=== PATIENT | male | born 1955 | race Caucasian/White ===

== ENCOUNTER 2025-03-06 04:56 | Inpatient (IN) | payer OTHER, SELFPAY ==
[2025-03-05 09:39] LABS: Hematocrit 30.1 % (39.0-52.0); Hemoglobin 9.6 g/dL (13.0-18.0); Mean Corp Hgb Conc. 31.9 g/dL (33.0-37.0); Mean Corpuscular Volume 90.9 fL (80.0-94.0); Nucleated Red Blood Cells % 0 % (-); Platelet Count 136 10^3/uL (130-400); Red Cell Dist. Width 14.9 % (11.5-14.5)
[2025-03-05 09:42] LABS: Urine Character Clear (Clear)
[2025-03-05 09:43] LABS: INR 1.15; PT 15.0 Sec (11.4-14.6)
--- NOTE | 2025-03-05 09:54 | CM ---
Chart reviewed. Met with the patient and sister in [facility]. Reviewed preoperative and postoperative instructions and restrictions, along with showering guidelines. Gave patient 2 soaps. Patient is agreeable to a home visit with CT Transitional RN.
Patient is independent of ADLS, lives alone in a 1 [address], 5 ZHANG, 0 DME. Patient with a supportive sister that the patient may go back to her house when discharged. Patient's sister lives in [place]. Plan is for the patient to return home vs
sister's house with CT Transitional Care RN.
[2025-03-05 10:18] LABS: ALT (SGPT) 23 U/L (0-50); AST (SGOT) 25 U/L (17-59); Albumin 4.0 g/dl (3.5-5.0); Alkaline Phosphatase 133 U/L (38-126); Blood Urea Nitrogen 17 mg/dl (9-20); Calcium 8.7 mg/dl (8.4-10.2); Carbon Dioxide 27 mmol/L (22-30); Chloride 106 mmol/L (98-107); Estimated Creatinine Clearance 107 ml/min; Glucose 266 mg/dl (70-99); Potassium 5.1 mmol/L (3.5-5.1); Sodium 137 mmol/L (135-145); Total Protein 8.7 g/dl (6.3-8.2); eGFR > 60.00
[2025-03-05 10:20] LABS: Glycohemoglobin (HgbA1c) 8.6 % (4.0-5.6)
[2025-03-05 10:38] LABS: Urine Squamous Cell 16-20 /LPF (Few)
[2025-03-05 10:40] LABS: Urine Red Blood Cell 0-2 /HPF (0-2); Urine White Cell 0-2 /HPF (0-5)
[2025-03-06] VITALS (15 sets, daily range): BP systolic 94–168; BP diastolic 47–71; BMI 35.5
[2025-03-06] MEDS: MAGNESIUM OXIDE 500 MG PO (05:43)
[2025-03-06] MEDS: BACTROBAN 2% OINTMENT 1 APPLIC NASAL ×2 (05:43→20:10)
[2025-03-06] MEDS: PROTONIX 40 MG PO (05:44)
[2025-03-06] MEDS: LOPRESSOR 25 MG PO (05:44)
--- NOTE | 2025-03-06 05:58 | PTCARENOTE ---
0500 admitted patient into room, patient was clipped and had CHG bath, linens changed, pre op questions completed. Patient confrimed NPO status, and home CHG bath/shower. Home medications reviewed. Pre op PO medications given. Glasses in room
with sister.
--- NOTE | 2025-03-06 06:13 | W.CVOR.SURPR ---
CVOR Surgeon Immed Pre Op
-
I have examined this patient prior to performance of the scheduled procedure.
The patient's condition is unchanged from the time of the dictated/written History and
Physical and the patient is able to undergo the scheduled procedure.
CABG +/- AVR + ALFREDO E
[2025-03-06 07:38] LABS: Urine Character Clear (Clear)
[2025-03-06 07:51] LABS: ACT+ - POC 123 Seconds (82-134)
[2025-03-06 07:52] LABS: Urine White Cell 0-2 /HPF (0-5)
[2025-03-06 09:21] LABS: B.E. - POC -1.2 mmol/L; Glucose - POC 189 mg/dl (70-99); HCO3 - POC 24 mmol/L (21-28); Hematocrit - POC 27 % PCV (42-52); Hemodilution- POC No; Hemoglobin Calculated - POC 9.3; Ionized Calcium - POC 1.19 mmol/L (1.15-1.33); Lactate - POC 1.14 mmol/L (0.36-0.75); O2 Saturation %Calculated-POC 99.5 % (94-98); PCO2 - POC 44 mmHg (35-48); PO2 - POC 177 mmHg (83-108); Potassium - POC 4.1 mmol/L (3.5-5.1); Sodium - POC 141 mmol/L (136-145); Specimen Type - POC Arterial; pH - POC 7.36 (7.35-7.45)
[2025-03-06 09:31] LABS: ACT+ - POC 634 Seconds (82-134)
[2025-03-06 09:50] LABS: B.E. - POC 0.8 mmol/L; Glucose - POC 224 mg/dl (70-99); HCO3 - POC 26 mmol/L (21-28); Hematocrit - POC 27 % PCV (42-52); Hemodilution- POC No; Hemoglobin Calculated - POC 9.1; Ionized Calcium - POC 1.17 mmol/L (1.15-1.33); Lactate - POC 0.93 mmol/L (0.36-0.75); O2 Saturation %Calculated-POC 99.8 % (94-98); PCO2 - POC 45 mmHg (35-48); PO2 - POC 225 mmHg (83-108); Potassium - POC 4.4 mmol/L (3.5-5.1); Sodium - POC 141 mmol/L (136-145); Specimen Type - POC Arterial; pH - POC 7.37 (7.35-7.45)
[2025-03-06 10:03] LABS: ACT+ - POC 683 Seconds (82-134)
[2025-03-06 10:35] LABS: ACT+ - POC 525 Seconds (82-134)
[2025-03-06 10:54] LABS: B.E. - POC 1.8 mmol/L; Glucose - POC 217 mg/dl (70-99); HCO3 - POC 27 mmol/L (21-28); Hematocrit - POC 27 % PCV (42-52); Hemodilution- POC Yes; Hemoglobin Calculated - POC 9.2; Ionized Calcium - POC 1.13 mmol/L (1.15-1.33); Lactate - POC 1.27 mmol/L (0.36-0.75); O2 Saturation %Calculated-POC 99.7 % (94-98); PCO2 - POC 46 mmHg (35-48); PO2 - POC 208 mmHg (83-108); Potassium - POC 4.6 mmol/L (3.5-5.1); Sodium - POC 141 mmol/L (136-145); Specimen Type - POC Arterial; pH - POC 7.38 (7.35-7.45)
--- NOTE | 2025-03-06 11:16 | CM ---
Chart reviewed. Patient is in the OR today. Patient is independent of ADLS, lives alone in a 1 S[address], 5 ZHANG, 0 DME. Patient with a supportive sister who lives in [place]. Patient unsure if he will go home with CT Transitional RN vs
sister's house with CT Transitional RN. CM to follow
[2025-03-06 11:28] LABS: ACT+ - POC 131 Seconds (82-134)
[2025-03-06 11:40] LABS: B.E. - POC 2.9 mmol/L; Glucose - POC 218 mg/dl (70-99); HCO3 - POC 28 mmol/L (21-28); Hematocrit - POC 28 % PCV (42-52); Hemodilution- POC Yes; Hemoglobin Calculated - POC 9.4; Ionized Calcium - POC 1.06 mmol/L (1.15-1.33); Lactate - POC < 0.30 mmol/L (0.36-0.75); O2 Saturation %Calculated-POC 100.0 % (94-98); PCO2 - POC 44 mmHg (35-48); PO2 - POC 410 mmHg (83-108); Potassium - POC 4.8 mmol/L (3.5-5.1); Sodium - POC 140 mmol/L (136-145); Specimen Type - POC Arterial; pH - POC 7.41 (7.35-7.45)
--- NOTE | 2025-03-06 11:53 | W.PN.CT.SURG ---
CT Surgery Operative Note
-
CARDIAC SURGERY OPERATIVE REPORT
Preoperative Diagnosis: Multivessel Coronary Artery Disease with proximal LAD involvement
Postoperative Diagnosis: Same
Procedure(s) Performed:
1. Standard Sternotomy with Aortic and Right Atrial Cannulation
2. Internal Mammary Artery Harvesting, Left
3. Multi arterial coronary artery bypass grafting x 5 (In situ ABARCA to diagonal sequential to to LAD, Ao to RSVG to ramus, Ao to RSVG to RPDA sequential to LPL)
4. Endoscopic vein harvesting of left lower extremity and open exploration for vein in the right thigh
5. Transesophageal echocardiography
6. Placement of Temporary Ventricular Pacing Wires
7. Left atrial appendage exclusion [35 mm device]
Date of Surgery: 03/06/2025
Comorbidities:
1. Unstable angina, multivessel coronary disease involving the proximal LAD
2. Diabetic
3. Hypertension
4. Morbidly obese with a BMI of 35
5. Hyperlipidemia
6. Nephrolithiasis
7. Venous stasis changes and lymphedema bilateral lower extremities
Attending Surgeon: Paolo French MD, MS
Assistants: DIONTE Brown (present and necessary to librarian assistant, endoscopic vein harvest, retraction, suction, exposure, suture management, and wound closure under my direction), Johan Ash, PGY 2 (Cardiac Surgery Resident)
Anesthesiology: Zia Maynard MD and Jeffy Moran CRNA
Scrub and Circulating RNs: Joelle Strange RN, Guerita Zavala RN
Fertilizer Mixer: Glenn Meraz CCP
Anesthesia: GETA
EBL: per perfusion records
Products: None
CPB Time: 90 minutes
Aortic Cross Clamp Time: 81 minutes
Indication(s) for Procedures: This is a 69-year-old male has been experiencing chest pain and discomfort. He underwent cardiovascular evaluation and was found to have multivessel coronary artery disease. He also was found to have a moderate degree
of aortic valve insufficiency which would be interrogated intraoperatively. He was offered surgical revascularization given his diabetic status and proximal LAD involvement and multi arterial lesion pattern.
Conduit(s) Quality:
ABARCA -thickened as a pedicle, densely adherent to the chest wall but excellent flow
RSVG -average, multiple varicosities, thin spots but decent caliber
Target(s) Quality:
RPDA -good quality size target, mean flow of approximately 40 cc a minute at a pressure 80 mmHg, given the size of the vein graft there is difficulty with flow probe assessment of the vein graft
LPL -smaller size target but overall good flow on test dosing antegrade down the vein graft, done as a sequential graft to the RPDA
Ramus -large sized target with heavy calcium proximally, the vein had excellent flow here with a mean flow approximately 32 cc a minute with a pulse index of 6.1, test dosing antegrade yielded a mean flow of approximately 60 to 70 cc a minute at a
pressure of 80 mmHg
Diagonal -good, large diagonal vessel that traveled down towards the apex, the ABARCA was sequenced here before hitting the LAD as a trauma part of the graft, there was good visual flow in that territory and good flow in the graft using a Doppler as I
was unable to get the flow probe to fit over the pedicle graft
LAD -excellent, large target with good visual flow in the LAD territory, there was good Doppler signals after the diagonal sequence on the ABARCA graft, there was also visual pinking up of and warming up of the myocardium after release of the bulldog
clamp
Findings: His left ventricular ejection fraction preoperatively was 60% with no significant regional wall motion abnormalities. His aortic valve was interrogated on transesophageal echocardiogram and found to have no significant insufficiency and
no stenosis. The ABARCA was harvested in a pedicle fashion. Following bypass grafting, test dose cardioplegia was given down each distal and confirmed patency and hemostasis. Following surgery his EF was the same and there were no new regional wall
motion abnormalities. His left atrial appendage was verified to be free of any thrombus or debris preoperatively and found to be totally occlusive postoperatively. I did divide the ligament of Walt. Of note, he had poor conduit which was
expected given the venous stasis and lymphedema of his lower extremities. I did not opt to take a radiograph as I felt his lesions did not have enough proximal disease for to mature and prevent spasm.
Description of Procedure: The patient was taken to the operating room. Their identity and procedure to be performed were verified and they were positioned supine on the operating table. Induction via general anesthesia with endotracheal intubation
was performed and central venous access and arterial monitoring were inserted. A preoperative transesophageal echocardiogram was performed to assess cardiac function and valvular function. The patient was then prepped and draped from chin to feet in
a sterile fashion. A preoperative time-out was performed with all members of the team present. A midline chest incision was performed along with median sternotomy. Simultaneous endoscopic access of the left lower extremity for saphenous vein harvest
was obtained along with administration of an initial 5,000 units of IV heparin. A RulTract sternal retractor was positioned to exposure the left internal mammary bed. The mammary was harvested and found to have good flow. Several medium clips were
applied to the distal end of the mammary after dividing it. It was wrapped in a papaverine soaked RayTec and replaced back into the left hemithorax. Given the lack of vein conduit, the right leg was also explored in an open fashion in order to
notify any conduit, none was found the RulTract was exchanged for a median sternal retractor. The innominate vein was isolated. Full heparinization was given (a total of 60,000 units). We created a pericardial well. The aortic cannulation site was
chosen where it was soft, pliable, and free of calcium. Cannulation was performed with an arterial cannula in the ascending aorta and a triple-stage venous cannula through the right atrial appendage. The arterial cannula line had an appropriate
bounce and correlating pressures with test dosing. Next, a root vent/antegrade cannula was inserted into the ascending aorta. The ACT was confirmed to be over 400 and retrograde autologous priming was performed before commencing cardiopulmonary
bypass. The pulmonary artery was away from the aorta to facilitate a clamp site. The aortic cross-clamp was placed after decreasing the flow on the bypass and mean arterial pressure. A total of 1.2L initial dose of antegrade Del-Nido
cardioplegia solution was given and planned for re-dosing every 75 minutes as necessary. There was rapid electro-mechanical arrest of the heart at 300 cc of cardioplegia. The left ventricle was observed for distention on echocardiogram and manual
palpation. Cold slush was placed into a sponge and topically on the RV while we systemically cooled to 34 degrees centigrade. Once the heart was fully arrested it was rotated medially and the left atrial appendage was clipped flush the base and the
ligament of Walt was divided.
I positioned the heart to expose the left posterior lateral branch. A [place] blade was used to expose the coronary and perform the arteriotomy. Coronary Hurtado scissors were used to enlarge the incision. The saphenous vein was trimmed and beveled to
an appropriate size. The distal anastomosis was performed using 7-0 prolene in an end-to-side fashion. Antegrade cardioplegia was administered into the graft. Appropriate hemostasis and flow were confirmed. I then identified the RPDA in a similar
fashion prepared with a [place] blade. The underbelly of the vein graft was incised and a [id number] anastomosis was created with this graft using 7-0 Prolene. I then clamped the distal end with a bulldog and additional cardioplegia was given
down to test the flow in the graft which was excellent. The bulldog was then removed and the vein graft was cut to the length of the aorta. A suitable site on the ramus was chosen. We dissected and prepared the distal target in a similar fashion.
An end-to-side anastomosis was created with a 7-0 prolene. Antegrade cardioplegia was administered into the graft. Appropriate hemostasis and flow were confirmed. The graft was measured for length to the aorta and cut. There was a very large
diagonal vessel that had some proximal disease on palpation. This vessel had a down towards the apex. A small coronary arteriotomy was then created and then the ABARCA was brought into the field. The underbelly the ABARCA at the midportion was
incised and a [id number]-[id number] anastomosis was created here. I then prepared the distal LAD in a similar fashion and a small coronary arteriotomy was created and the distal end of the ABARCA was also incised and a end-to-side anastomosis was created with
7-0 Prolene. Upon release of the bulldog clamp there was excellent visual flow in the LAD territory. When I did complete the diagonal anastomosis I did release the bulldog clamp to test the flow there was good visual flow in the diagonal but very
sluggish flow back into the LAD. The bull clamp was replaced on the mammary. The heart was filled and the root was distended with antegrade cardioplegia to make final assessment of graft length and orientation. We created 2 aortotomies using a #11
blade then a 4.0mm aortic punch. The proximal anastomoses were created in an end-to-side fashion using 6-0 prolene. At the the same time, we re-warmed to 36.5 degrees centigrade. The bulldog clamp was removed from the mammary. Temporary bipolar
ventricular pacing wires were placed on the base of the right ventricle. The patient was placed in a Trendelenburg position and flows on bypass were lowered. The aortic cross clamp was removed and flows were slowly brought back up. All bypass grafts
were inspected and were free from kinking or twisting. The distal and proximal anastomoses appeared hemostatic. Once transesophageal echocardiography appeared satisfactory for de-airing, the flows were temporarily lowered for root vent removal.
After verifying acceptable parameters, we initiated weaning from cardiopulmonary bypass. Once we were off cardiopulmonary bypass, the venous cannula was clamped and removed. A test dose of protamine was administered and the patient was monitored for
any adverse reaction before resuming protamine. Once half of the protamine dose was delivered, pump suckers were turned off and the systolic blood pressure was lowered for aortic decannulation. The aortic cannula was removed and pursestrings were
tied down. All cannulation sites were oversewn with a 4-0 prolene. The mammary bed was inspected and hemostasis was confirmed. Once the mediastinum was hemostatic, 19Fr Wilman drain was placed in the left pleural cavity and two 24Fr Wilman drains were
placed within the pericardium. The sternum was approximated with 4 #7 single and 3 #8 double stainless steel wires. Fascia was approximated with #1 vicryl suture. The subcutaneous, dermis and epidermis were closed in layers in a running fashion. The
skin wound was cleansed and dressed.
All instrument, sponge, and needle counts were confirmed to be correct x 2 at the end of the operation. The patient was transferred to the cardiac intensive care unit in critical but stable condition.
I, Dr. Paolo French, was present, scrubbed for, and performed all critical elements of this procedure.
Paolo French MD, MS
Cardiothoracic Surgeon
[facility]
This operative dictation was created using the [employer] dictation system. Please excuse any grammatical, typographical, or 'sound alike' errors
[2025-03-06] MEDS: NOVOLOG FLEXPEN SC ×2 (12:01→17:22)
[2025-03-06 12:50] LABS: B.E. - POC -0.6 mmol/L; Glucose - POC 170 mg/dl (70-99); HCO3 - POC 25 mmol/L (21-28); Hematocrit - POC 29 % PCV (42-52); Hemodilution- POC Yes; Hemoglobin Calculated - POC 9.8; Ionized Calcium - POC 1.32 mmol/L (1.15-1.33); Lactate - POC 2.30 mmol/L (0.36-0.75); O2 Saturation %Calculated-POC 99.9 % (94-98); PCO2 - POC 46 mmHg (35-48); PO2 - POC 314 mmHg (83-108); Potassium - POC 4.0 mmol/L (3.5-5.1); Sodium - POC 143 mmol/L (136-145); Specimen Type - POC Arterial; pH - POC 7.35 (7.35-7.45)
[2025-03-06 13:08] LABS: Glucose - Point of Care 158 mg/dl (70-99)
[2025-03-06 13:23] LABS: B.E. -2.6 mmol/L; HCO3 23.7 mmol/L (21-28); O2 Saturation % 99.1 % (94-98); PCO2 47 mmHg (35-48); PO2 106 mmHg (83-108); Potassium 3.8 mMOL/L (3.5-5.1); Sodium 138 mMOL/L (136-145)
--- NOTE | 2025-03-06 13:33 | PN.DE.MGMTRT ---
Insulin Management
- -
03/06/2025: Diabetes Management Consult
69 year old male admitted for an elective AVR, CABG. PMH: MVCAD, HTN, HLD, Obesity, ex-smoker, 5 pack years, quit at age 22, Neck and back pain, Abdominal hernia, R kidney tumor, + Cancer, Neuropathy, Nephrolithiasis, Anemia and IDDM.
A1C 8.6%, Cr 0.9, eGFR >60. Chart review indicates pt was taking, Basaglar 40 units in AM, NovoLog SS, Metformin 500mg BID and Glimepiride 2mg BID.
Pt is sedated and intubated, unable to interview or collaborate OP regimen and no family at bedside.
Will have to verify this med list when he is alert and oriented.
POD # 0 S/P AVR, CABG x4. Currently on Critical care glycemic protocol. Recent glucose 158.
Continue insulin infusion postoperatively x48 hrs.
Will closely follow and monitor for readiness to transition to SQ insulin
Discussed with Nurse.
Diabetes History
- -
Type of Diabetes: 2 requiring insulin
Pre-Admission Diabetes Regimen
Lab Results
Hemoglobin A1c 8.6 % (4.0-5.6) H 03/05/25 08:42
Insulin Pump Settings
IP Diabetes Regimen
03/06/25
13:07
POC Glucose 158 H
Patient Education
[2025-03-06 13:37] LABS: INR 1.49; PT 18.2 Sec (11.4-14.6)
[2025-03-06 13:38] LABS: APTT 27.4 Sec (23.4-35.0)
[2025-03-06] MEDS: LR 250 ML IV (13:39)
[2025-03-06] MEDS: KCL 50 IV ×2 (13:39→14:39)
[2025-03-06] MEDS: NSS 500 IV (13:39)
[2025-03-06] MEDS: ANCEF 15 MG IV (13:40)
[2025-03-06] MEDS: ANCEF 10 IV (13:40)
[2025-03-06 13:48] LABS: Hematocrit 25.0 % (39.0-52.0); Hemoglobin 8.3 g/dL (13.0-18.0); Platelet Count 174 10^3/uL (130-400)
[2025-03-06 13:50] LABS: Blood Urea Nitrogen 19 mg/dl (9-20); Estimated Creatinine Clearance 119 ml/min; Glucose 152 mg/dl (70-99); Magnesium 2.3 mg/dl (1.6-2.3)
[2025-03-06 14:01] LABS: Glucose - Point of Care 144 mg/dl (70-99)
--- NOTE | 2025-03-06 14:12 | CON.INTV ---
Consultation
Consultation Request
Date/Time Consultation Requested: 03/06/2025
Date/Time Consultation Performed: 03/06/2025
Medical History
-
Chief Complaint: Chest pain
History of Present Illness:
Patient is a 69-year-old gentleman who was reportedly having episodic chest discomfort and was evaluated as an outpatient. He had an echocardiogram performed which showed normal left ventricular ejection fraction with some left ventricular
hypertrophy. Subsequently patient had a left heart catheterization performed in January 2025 which demonstrated severe proximal LAD disease with IFR assessment of 0.4. Circumflex also heavily diseased with a positive IFR. Patient was evaluated by CT
surgery service and was recommended to have coronary artery bypass graft. Today patient was admitted to the hospital for above surgery and postsurgery was admitted to CVICU. Tab Machine Operator consultation was requested for further input.
Past medical history. Diabetes, hypertension, obesity, hyperlipidemia, reported history of renal tumor, neuropathy, nephrolithiasis, lower extremity edema, question lymphedema.
Past surgical history. Appendectomy, back surgeries, renal tumor removal.
Family history. Patient's parents were smokers, father had coronary artery disease. No reported history of lung cancer in the family.
Social history. Patient smoked very briefly in his 20s and has never smoked since. Reported secondhand exposure to smoking as well as some asbestos exposure in the past.
Allergies / Home Medications
Allergies
Allergy/AdvReac Type Severity Reaction Status Date / Time
No Known Allergies Allergy Unverified 07/12/12 20:24
Home Medications
�Medication �Instructions �Recorded �Confirmed �Last Taken �Type
glimepiride 2 mg tablet 2 mg PO BID 07/12/12 03/06/25 07/23/22 08:00 History
hydrocodone 5 mg-acetaminophen 325 1 tab PO Q4HPRN PRN pain 07/12/12 03/06/25 03/05/25 History
mg tablet 10/325
ketorolac 10 mg tablet 10 mg PO Q6HPRN PRN prn for pain 07/12/12 03/06/25 Unknown Rx
#20 tabs
lisinopril 5 mg tablet 5 mg PO DAILY 07/12/12 03/06/25 03/05/25 09:00 History
metformin 500 mg tablet 500 mg PO BID@0800,1700 07/12/12 03/06/25 07/23/20 09:00 History
Review of Systems
-
Unable to Obtain full review of systems at this time due to: Other (Patient just extubated and still sedated, unable to perform a full review of system.)
Vitals / Labs / Diagnostic Testing
Vital Signs
Temp Pulse Resp BP Pulse Ox
95.7 F L 57 6 115/64 98
03/06/25 14:00 03/06/25 14:10 03/06/25 14:05 03/06/25 14:00 03/06/25 14:10
Lab Data
03/06/25 13:07
Laboratory Results
03/06/25
13:07
PT 18.2 H
INR 1.49
APTT 27.4
pH 7.31 L
pCO2 47
pO2 106
HCO3 23.7
O2 Delivery Level
Diagnostic Testing:
Physical Exam
-
HEENT: Normocephalic
Cardiovascular: S1/S2
Respiratory: Non-Labored Respirations
GI: Soft and Non Distended
Neurology: Other (Drowsy, protecting airways and breathing on his own)
Skin: Warm
General: Comfortable
Assessment
-
69-year gentleman with newly detected multivessel disease, s/p coronary artery bypass graft and left atrial appendage clip placement, POD # 0
Titrate off pressors per protocol, currently on Levophed infusing at 8. Blood pressure 94 x 45.
ECHO reviewed with normal LVEF.
PA catheter readings reviewed, 36 x 16, mean of 22, cardiac index 2.1
Management of chest tubes per primary service
Patient was extubated minutes before evaluation, still drowsy however saturating 99% on 6 L supplemental oxygen, respiratory rate in high teens to low 20. Work of breathing normal
Wean oxygen as tolerated
No prior history of pulmonary disease, smoked very briefly before age 22 none since. Reports secondhand smoke exposure however
Prior PFTs reviewed
Can add nebulizers if needed
Aspiration precautions
Encouraged incentive spirometry, OOB/ambulation/early mobility
Advance diet as tolerated following extubation
GI prophylaxis: protonix
Monitor critical I/O's
Moise/chest tube output
Hb/platelets postoperatively stable
Trend CBC for now
Can transfuse if indicated for Hb <7, plt <50 in surgical patients
DVT prophylaxis including SCDs
Insulin protocol initiated and ongoing
Transition to SQ/off as indicated per team
Medical diagnoses:
- CAD s/p CABG and ALFREDO clip 02/2025. On aspirin, Plavix, atorvastatin
- HTN, HLD
- DM
- H/o Asbestos exposure
- History of renal tumor, s/p resection in the past. Will gather additional detail once patient is more awake and alert
Critical Care time 61 mins -- The patient is admitted for acute critical illness for the treatment of vital organ failure and/or prevention of further life-threatening conditions. Total care includes time spent in review of history, physical exam,
medications, hemodynamic/ventilator parameters, laboratory data, imaging and discussion with house staff, pharmacy, respiratory therapy, protozoologist, and nursing.
Data:
CXR 02/2025: Mild LLL atelectasis. Otherwise unremarkable
JOSIE 02/2024: Normal left ventricular size and systolic function, mild LVH, stage I diastolic dysfunction.
No significant aortic valve disease.
The aorta has atheroma less than 5 mm and mild calcifications.
Mild left atrial enlargement.
Trace MR. Mild MAC.
Trace TR
[2025-03-06] MEDS: TYLENOL PO (14:24)
--- NOTE | 2025-03-06 14:25 | PTCARENOTE ---
Patient received from CVOR at 1300; Sedated and intubated; SB with SR rhythm on monitor; VSS; Epicardial V wire present with temporary pacemaker settings 45/10/2.0; +2 DP and radial pulses present; Lungs diminished at bases; ETT size 8 positioned
and secured at 24 cm right lip; Ventilator settings SIMV 14/550/5/5 FiO2 40%; CTx3 to -20 cm wall suction draining bloody drainage - no air leak, tidaling, or crepitus noted; Hypoactive BS; Moise catheter in place draining clear, yellow urine;
Midline sternal incision glued, approximated, and SHANNA, right groin incision puncture site glued, approximated, and DIRECTORY OPERATOR - CDI, left groin incision puncture site glued, approximated, and SHANNA - CDI, B/L LE wrapped in CLIFF wrap - CDI; Right radial A-line
in place, [place] Cesar floated to 47 cm in RIJ Cordis - all lines zeroed and leveled; PIVx1 - #20 right wrist; Levo, insulin, and precedex infusing - see nursing flowsheets for further details; K repleted x2, LR bolus given x1; see nursing
documentation for further details.
CO: 4.10
CI: 1.71
SVR: 995
--- NOTE | 2025-03-06 14:55 | PTCARENOTE ---
RT in room and patient placed on CPAP breathing trial. EPOC ABG due at 1527
[2025-03-06 15:04] LABS: Glucose - Point of Care 176 mg/dl (70-99)
--- NOTE | 2025-03-06 15:08 | W.PN.CD ---
Today's Communication / Plan
-
Continue postop care as directed by CT surgery.
Wean from vent as per protocol.
Wean pressor as tolerated. Currently on levo at 2
Monitor for atrial fibrillation.
Diabetes management per protocol
Impression / Plan
-
69-year-old male with history of diabetes is noted to have multivessel coronary artery disease and underwent coronary artery bypass grafting and ALFREDO clip
.
Coronary artery disease -status post coronary artery bypass grafting x [address] ALFR[address] Dr[address] French 03/06/2025
- Stable postop
- Extubate as per protocol
- Postop care per CT surgery
.
Diabetes management per protocol.
Anemia. History of anemia. Monitor postop anemia.
.
History of resection of right kidney tumor
ECG 03/06/2025 sinus bradycardia
.
Physical Exam
Vital Signs/Labs
Vital Signs
Temp Pulse Resp BP Pulse Ox
95.7 F L 57 6 115/64 98
03/06/25 14:00 03/06/25 14:10 03/06/25 14:05 03/06/25 14:00 03/06/25 14:10
03/05/25 03/06/25 03/07/25
06:59 06:59 06:59
Actual Weight 118.6 kg
03/06/25 13:07
PT 18.2 Sec (11.4-14.6) H 03/06/25 13:07
INR 1.49 03/06/25 13:07
APTT 27.4 Sec (23.4-35.0) 03/06/25 13:07
Magnesium 2.3 mg/dl (1.6-2.3) 03/06/25 13:07
Physical Exam
Constitutional: No acute distress and Other (Vented)
Cardiovascular: Rhythm & rate is regular
Respiratory: Wheeze Absent and Rhonchi Absent
GI: Soft
Data Reviewed
-
Date of Service: March 06, 2025
Medical Decision Making: Reviewed Test Results
Echo: Report Reviewed by me
Medical Tests (PFT, Pathology etc): Report Reviewed by me
Labs: Labs Reviewed by me
[2025-03-06 15:35] LABS: B.E. - POC -1.6 mmol/L; Blood Urea Nitrogen - POC 19 mg/dl (3-120); Chloride - POC 107 mmol/L (96-111); Creatinine - POC 0.82 mg/dl (0.3-1.0); Glucose - POC 154 mg/dl (70-99); HCO3 - POC 25 mmol/L (21-28); Hematocrit - POC 27 % PCV (42-52); Hemodilution- POC No; Hemoglobin Calculated - POC 9.0; Ionized Calcium - POC 1.23 mmol/L (1.15-1.33); Lactate - POC 1.55 mmol/L (0.36-0.75); O2 Saturation %Calculated-POC 98.4 % (94-98); PCO2 - POC 49 mmHg (35-48); PO2 - POC 124 mmHg (83-108); Potassium - POC 5.0 mmol/L (3.5-5.1); Sodium - POC 143 mmol/L (136-145); Specimen Type - POC Arterial; pH - POC 7.32 (7.35-7.45)
--- NOTE | 2025-03-06 15:43 | PTCARENOTE ---
EPOC ABG's reviewed with CHIARA Ace; RT at bedside; Patient extubated at 1540 and placed on 6L NC
[2025-03-06 15:57] LABS: Glucose - Point of Care 171 mg/dl (70-99)
[2025-03-06] MEDS: OFIRMEV 100 IV (16:10)
[2025-03-06 16:45] LABS: Glucose - Point of Care 175 mg/dl (70-99)
[2025-03-06 16:51] LABS: B.E. -3.5 mmol/L; HCO3 23.1 mmol/L (21-28); Hematocrit 26.6 % (39.0-52.0); Hemoglobin 8.9 g/dL (13.0-18.0); O2 Saturation % 99.1 % (94-98); PCO2 48 mmHg (35-48); PO2 128 mmHg (83-108); Platelet Count 191 10^3/uL (130-400); Potassium 5.4 mMOL/L (3.5-5.1); Sodium 136 mMOL/L (136-145)
[2025-03-06] MEDS: PACERONE PO ×2 (17:22→22:10)
[2025-03-06] MEDS: NEURONTIN PO (17:23)
[2025-03-06] MEDS: LOW STRENGTH ASPIRIN 81 MG PO (17:41)
[2025-03-06] MEDS: DOBUTREX 500 MG 250 IV (17:51)
[2025-03-06] MEDS: DILAUDID 0.25 MG IV (17:52)
[2025-03-06] MEDS: ANCEF 5 IV (18:02)
[2025-03-06 18:16] LABS: Glucose - Point of Care 178 mg/dl (70-99)
[2025-03-06] MEDS: DILAUDID 0.5 MG IV ×2 (18:41→23:08)
--- NOTE | 2025-03-06 19:21 | PTCARENOTE ---
Dobutamine infusion started at 2 mcg/kg/min as per CVPA Mae Ace; ABG and MVO2 sent as per CVPA Jarrod
[2025-03-06 19:26] LABS: B.E. -3.8 mmol/L; HCO3 21.5 mmol/L (21-28); O2 Saturation % 98.1 % (94-98); PCO2 39 mmHg (35-48); PO2 83 mmHg (83-108); Potassium 5.1 mMOL/L (3.5-5.1)
[2025-03-06] MEDS: ROXICODONE 5 MG PO (19:55)
[2025-03-06] MEDS: SENOKOT-S 1 TABLET PO (19:55)
[2025-03-06] MEDS: FLEXERIL 5 MG PO (19:55)
--- NOTE | 2025-03-06 20:00 | PTCARENOTE ---
assumed care of pt from previous RN. pt A&Ox4, bedrest s/p CVOR. R IJ cordis w/ swan floated to 47cm. R radial a-line. all lines leveled, zeroed, flushed. SB/SR on tele-monitor. temp epicardial v-wires, insulated, back up settings VVI 45/10/2. POX
96-98% on [address] x3 (mediastinal x2, L pleural) to -20cm wall suction, draining sanguineous drainage. abd s/n, round, obese. hypoactive BS. vasquez catheter draining clear, yellow colored urine. all surgical sites stable, CDI. PIV intact. plan of
care discussed w/ pt, pt in agreement. see worklist for complete nursing assessment, gtt titrations, interventions, VS, and I&Os.
[2025-03-06] MEDS: SODIUM BICARBONATE 50 MEQ IV (20:02)
[2025-03-06 20:16] LABS: Glucose - Point of Care 139 mg/dl (70-99)
[2025-03-06] MEDS: ZOFRAN 4 MG IV (21:14)
[2025-03-06] MEDS: TYLENOL 1000 MG PO (22:10)
[2025-03-06] MEDS: NEURONTIN 100 MG PO (22:10)
[2025-03-06] MEDS: LIPITOR 40 MG PO (22:10)
[2025-03-06 22:16] LABS: Glucose - Point of Care 142 mg/dl (70-99)
[2025-03-06 23:16] LABS: Glucose - Point of Care 141 mg/dl (70-99)
[2025-03-07] VITALS (33 sets, daily range): BP systolic 100–154; BP diastolic 50–93; BMI 35.9
--- NOTE | 2025-03-07 | PTCARENOTE ---
assessment remains unchanged. SR on tele-monitor. POX 93-95% on [address] drainage WNL. U/O <0.5ml/kg/h - CT PA aware.
[2025-03-07 00:07] LABS: Glucose - Point of Care 132 mg/dl (70-99)
[2025-03-07 01:14] LABS: Glucose - Point of Care 140 mg/dl (70-99)
[2025-03-07 02:22] LABS: Glucose - Point of Care 141 mg/dl (70-99)
[2025-03-07] MEDS: DILAUDID 0.25 MG IV (02:46)
[2025-03-07] MEDS: ANCEF 5 IV ×2 (02:46→11:19)
--- NOTE | 2025-03-07 03:07 | W.PN.CT ---
Today's Communication / Plan
-
-pod #1
-no issues overnight
-CI 2.82, CO 6.74, however, mVO2 is 57.9. Drips: Dobut 2, Nitro 40, Insulin
-CT output: 2 meds 210/380, L pleur 15/20 in 12/24 hrs
-Hg 7.4 today - ? 1pRBC
-platelets 91K- follow
-wean off Dobut as tolerated, then deline
-monitor renal fxn and UO closely (sp R nephrectomy, Cr 0.9 preop)
-maintain insulin
-current meds (ASA, Plavix, Lipitor, Amio, Protonix). Holding BB while on Dobut
-encourage IS, OOB
Assessment / Plan
-
- Mv-CAD- s/p CABG x 5 (In situ ABARCA to diagonal sequential to to LAD, Ao to RSVG to ramus, Ao to RSVG to RPDA sequential to LPL); LAAE [35 mm device] by Dr. French on 03/06/25, pod #1
- Intraop JOSIE: LVEF 60% pre and postop with no significant regional wma. His aortic valve was interrogated on transesophageal echocardiogram and found to have no significant insufficiency and no stenosis. His left atrial appendage was verified to
be free of any thrombus or debris preoperatively and found to be totally occlusive postoperatively.
- Unstable angina, multivessel coronary disease involving the proximal LAD
- DM II (A1c 8.6)
- Hypertension
- Class 2 obesity with a BMI of 35
- Hyperlipidemia
- Nephrolithiasis
- R renal CA, s/p nephrectomy
- Chronic venous stasis changes and lymphedema bilateral lower extremities
- Acute on chronic postop blood loss anemia- stable, no transfusion
- Acute postop atelectasis
- Acute postop hypovolemia with subsequent hypervolemia
- Acute postop suspected pericarditis on ECG/ + rub
Discussed patient care with: Nursing and Care Team
Subjective
-
Date of Service: March 07, 2025
Objective Data
-
PT 18.2 Sec (11.4-14.6) H 03/06/25 13:07
INR 1.49 03/06/25 13:07
APTT 27.4 Sec (23.4-35.0) 03/06/25 13:07
Vital Signs
Vital Signs
Temp Pulse Resp BP Pulse Ox
98.4 F 105 19 100/52 95
03/07/25 03:00 03/07/25 03:00 03/07/25 03:00 03/07/25 03:00 03/07/25 03:00
CT Intake/Output/Weight
03/06/25 03/06/25 03/07/25
06:59 18:59 06:59
Intake Total 975.5 / 1469.8 494.3 / 1469.8
Output Total 475 / 1060 585 / 1060
Balance 500.5 / 409.8 -90.7 / 409.8
SaO2: 95
Physical Exam
-
General: Awake and AOx3
Cardiovascular: Regular rate & rhythm, No Murmurs and Rub
Respiratory: Decreased Breath Sounds
Sternum: Stable
Incision: Clean, Dry and Intact
Extremities: Edema +1 (chronic ? lymphedema lower extremities b/l)
Abdomen: soft, nondistended, +decreased bowel sounds, nontender
Data Reviewed
-
Lab Results: Results Reviewed
Medications: Active Meds Reviewed
Chest X-Ray: Report Reviewed and Image Reviewed
ECG: Report Reviewed and Image Reviewed
--- NOTE | 2025-03-07 04:00 | PTCARENOTE ---
no acute changes. ST on tele-monitor. CT drainage WNL. AM labs collected and sent. EKG completed. see worklist for gtt titrations.
[2025-03-07] MEDS: ROXICODONE 5 MG PO ×2 (04:01→08:16)
[2025-03-07 04:02] LABS: Hematocrit 22.4 % (39.0-52.0); Hemoglobin 7.4 g/dL (13.0-18.0); Mean Corp Hgb Conc. 33.0 g/dL (33.0-37.0); Mean Corpuscular Volume 88.2 fL (80.0-94.0); Platelet Count 91 10^3/uL (130-400); Red Cell Dist. Width 15.6 % (11.5-14.5)
[2025-03-07] MEDS: NOVOLIN R INSULIN INFUSION 100 IV (04:02)
[2025-03-07 04:08] LABS: Glucose - Point of Care 132 mg/dl (70-99)
[2025-03-07 04:14] LABS: Blood Urea Nitrogen 25 mg/dl (9-20); Calcium 8.1 mg/dl (8.4-10.2); Carbon Dioxide 26 mmol/L (22-30); Chloride 112 mmol/L (98-107); Estimated Creatinine Clearance 106 ml/min; Glucose 139 mg/dl (70-99); Magnesium 2.2 mg/dl (1.6-2.3); Potassium 4.6 mmol/L (3.5-5.1); Sodium 139 mmol/L (135-145); eGFR > 60.00
[2025-03-07] MEDS: TYLENOL 1000 MG PO ×3 (04:22→21:12)
[2025-03-07] MEDS: DILAUDID 0.5 MG IV (05:37)
[2025-03-07 05:57] LABS: Glucose - Point of Care 134 mg/dl (70-99)
[2025-03-07 07:12] LABS: Glucose - Point of Care 122 mg/dl (70-99)
--- NOTE | 2025-03-07 07:38 | W.PN.ANS.POP ---
Anesthesia Post Operative
- Anesthesia Post Op Note
Vital Signs Stable-See Nursing Note: Yes
Airway Patent: Yes
Adequate Pain Control: Yes
Change in Mental Status: No
Current Postoperative Nausea & Vomiting: No
Anesthesia Complications: No
General Anesthetic Recall: No
Unplanned Admission: No
Post Op Hydration Adequate: Yes
--- NOTE | 2025-03-07 07:45 | PTCARENOTE ---
Assumed care of patient. Walking rounds completed with previous RN. Pt assessed while he was lying in bed. Pt alert and oriented x4. Rates sternal pain 8/10. Denies nausea. BARKER with equal strength throughout. ST on tele with rates in the 100s. BP
controlled with Nitro 120s/50s. Attempting to titrate to keep MAP<[address] MATRIX DRIER TENDER. +Rub. Bilateral radial and DP pulses palpable. +2 lower extremity edema. CI 2.9. PA pressures 30s/10s. CVP 12. Epicardial v-wire disconnected from temp pacer box. POX
97% on 3L NC, titrated to 2L NC, POX 95%. Lungs diminished throughout. IS encouraged-500mL achieved. No cough noted. Mediastinal chest tubes x2 y-sited to 1 atrium to -20cm suction draining serosanguinous fluid. Left pleural chest tube to -20cm
suction draining scant. No air leaks, tidaling, crepitus noted. Abdomen soft, round, obese, nontender. Hypoactive BS. Moise catheter intact draining adequate amounts of clear yellow urine. Tolerating water and clear liquid diet. Sternal incision
approximated, SHANNA. Chest tube dressing CDI. Right groin incision approximated, SHANNA with skin glue. Left groin puncture site approximated with skin glue, SHANNA. Right knee incisions approximated with skin glue CLIFF intact. Left knee incision
approximated with skin glue, CLIFF intact. Right IJ cordis and swan floated to 50cm. Right radial shania intact, positional at times. All lines flushed, leveled, zeroed. Right wrist 20g PIV intact with insulin infusing per critical care glycemic
protocol. Dobutamine infusing at 2mcg/kg/min. See MAR for medication administration. See worklist for complete nursing assessment. Plan of care reviewed and patient in agreement.
--- NOTE | 2025-03-07 08:00 | W.PN.INTV ---
Today's Communication / Plan
Recommendations
- Continue to wean pressors as tolerated
- Incentive spirometry, increase activity
- Needs outpatient sleep study, will arrange follow-up
Assessment
-
69-year gentleman with newly detected multivessel disease, s/p coronary artery bypass graft and left atrial appendage clip placement, POD # 1
Titrate off pressors per protocol, currently off Levophed, currently on dobutamine at 2. MAP of 69. Blood pressure 94 x 45. Also on nitro infusion at 20.
ECHO reviewed with normal LVEF.
PA catheter readings reviewed, 15/06, mean pressure 17. CVP 9-10
Management of chest tubes per primary service
Patient extubated, currently on nasal cannula saturating 95% on 3 L supplemental oxygen, work of breathing normal.
No prior history of pulmonary disease, smoked very briefly before age 22 none since. Reports secondhand smoke exposure however
Prior PFTs reviewed
Can add nebulizers if needed
Aspiration precautions
Encouraged incentive spirometry, OOB/ambulation/early mobility
Advance diet as tolerated following extubation
GI prophylaxis: protonix
Monitor critical I/O's
Moise/chest tube output
Hb/platelets postoperatively stable
Trend CBC for now
Can transfuse if indicated for Hb <7, plt <50 in surgical patients
DVT prophylaxis including SCDs
Insulin protocol initiated and ongoing
Transition to SQ/off as indicated per team
Medical diagnoses:
- CAD s/p CABG and ALFREDO clip 02/2025. On aspirin, Plavix, atorvastatin
- HTN, HLD
- DM
- H/o Asbestos exposure
- History of renal tumor, s/p resection in the past. Will gather additional detail once patient is more awake and alert
- Concern for sleep disordered breathing, witnessed apnea in hospital. Will pursue sleep study as out patient. Information left in the chart
Critical Care time 45 mins -- The patient is admitted for acute critical illness for the treatment of vital organ failure and/or prevention of further life-threatening conditions. Total care includes time spent in review of history, physical exam,
medications, hemodynamic/ventilator parameters, laboratory data, imaging and discussion with house staff, pharmacy, respiratory therapy, counter professional, and nursing.
Data:
CXR 02/2025: Mild LLL atelectasis. Otherwise unremarkable
JOSIE 02/2024: Normal left ventricular size and systolic function, mild LVH, stage I diastolic dysfunction.
No significant aortic valve disease.
The aorta has atheroma less than 5 mm and mild calcifications.
Mild left atrial enlargement.
Trace MR. Mild MAC.
Trace TR
Subjective Dataa
Subjective Data
Date of Service:
Date of Service: March 07, 2025
Subjective:
Patient comfortably sitting in bed, in no acute distress.
Review of Systems
Genitourinary: Other (Other than expected post sternotomy pain, unremarkable)
Objective Data
Data Reviewed
Vital Signs / I&O / Oxygen:
Vital Signs
Temp Pulse Resp BP Pulse Ox
98 F 105 17 101/59 95
03/07/25 07:00 03/07/25 07:00 03/07/25 07:00 03/07/25 07:00 03/07/25 07:00
Intake and Output
03/06/25 03/07/25 03/08/25
06:59 06:59 06:59
Intake Total 1613.1 / 1648.2 35.1 / 35.1
Output Total 1255 / 1335 80 / 80
Balance 358.1 / 313.2 -44.9 / -44.9
SaO2 [CPAP/PSV] 99
SaO2 [SIMV] 98
SaO2 95
Nasal Cannula flow liters per 3
minute
Physical Exam
General: Comfortable
HEENT: Normocephalic
Cardiovascular: S1-S2 and Peripheral Edema
Respiratory: Clear and Non-Labored Respirations
GI: Soft and Non Distended
Neurology: Awake and Alert
Skin: Warm
Labs/Micro/Reports
Lab Data
03/07/25 03:29
03/07/25 03:29
Laboratory Results
03/06/25 03/06/25 03/06/25
13:07 16:43 19:15
PT 18.2 H
INR 1.49
APTT 27.4
pH 7.31 L 7.29 L 7.35
pCO2 47 48 39
pO2 106 128 H 83
HCO3 23.7 23.1 21.5
O2 Delivery Level Not Reportable
Microbiology
03/05/25 08:42 Nose MRSA Screen - Final
Staph aureus MRSA
[2025-03-07 08:02] LABS: Glucose - Point of Care 123 mg/dl (70-99)
[2025-03-07] MEDS: NOVOLOG FLEXPEN 4 UNITS SC ×3 (08:17→18:08)
[2025-03-07] MEDS: BACTROBAN 2% OINTMENT 1 APPLIC NASAL ×2 (08:17→19:51)
[2025-03-07] MEDS: LIDOCAINE 4% PATCH 1 PATCH TOPICAL (08:17)
[2025-03-07] MEDS: LOW STRENGTH ASPIRIN 81 MG PO (08:18)
[2025-03-07] MEDS: MAGNESIUM OXIDE 500 MG PO ×2 (08:18→19:52)
[2025-03-07] MEDS: PROTONIX 40 MG PO (08:18)
[2025-03-07] MEDS: FLEXERIL 5 MG PO ×2 (08:18→22:56)
[2025-03-07] MEDS: VITAMIN C 500 MG PO (08:18)
[2025-03-07] MEDS: FEOSOL 325 MG PO (08:18)
[2025-03-07] MEDS: PACERONE 200 MG PO ×3 (08:18→21:12)
[2025-03-07] MEDS: PLAVIX 75 MG PO (08:19)
[2025-03-07] MEDS: SENOKOT-S 1 TABLET PO ×2 (08:19→19:52)
[2025-03-07] MEDS: NEURONTIN 100 MG PO ×3 (08:19→21:12)
--- NOTE | 2025-03-07 08:39 | PN.DE.MGMTRT ---
Insulin Management
- -
03/07/2025: Diabetes Management Consult Follow up
Patient admitted 03/06 for an elective AVR, CABG. PMH: MVCAD, HTN, HLD, Obesity, ex-smoker, 5 pack years, quit at age 22, Neck and back pain, Abdominal hernia, R kidney tumor, + Cancer - nephrectomy, Neuropathy, Nephrolithiasis, Anemia and IDDM.
Prior to admission was taking Basaglar 40 units in AM, NovoLog SS AC. A1C 8.6%, Cr 0.9, eGFR >60.
Pt is awake alert and oriented, able to discuss diabetes care. States he has had diabetes 40+ years. He has a Moshe 3 CGM for glucose monitoring and sees his primary doctor for ongoing diabetes care.
POD # 1 S/P AVR, CABG x4. Currently on Critical care glycemic protocol insulin infusion requiring 3 to 6 units of insulin per hour. Glucose range 123 to 144. Cr .9, eGFR > 60.
Continue insulin infusion today and assess for readiness to transition to SQ insulin in AM.
Will closely follow and monitor
Discussed with Nurse.
Diabetes History
- -
Type of Diabetes: 2 requiring insulin
Pre-Admission Diabetes Regimen
03/06/25 03/07/25
13:07 03:29
Creatinine 0.8 0.9
Lab Results
Hemoglobin A1c 8.6 % (4.0-5.6) H 03/05/25 08:42
Insulin Pump Settings
IP Diabetes Regimen
03/06/25 03/06/25 03/06/25
13:07 13:58 15:01
Glucose 152 H
POC Glucose 158 H 144 H 176 H
03/06/25 03/06/25 03/06/25
15:56 16:43 18:14
Glucose
POC Glucose 171 H 175 H 178 H
03/06/25 03/06/25 03/06/25
20:13 22:13 23:15
Glucose
POC Glucose 139 H 142 H 141 H
03/07/25 03/07/25 03/07/25
00:06 01:06 02:20
Glucose
POC Glucose 132 H 140 H 141 H
03/07/25 03/07/25 03/07/25
03:29 04:06 05:56
Glucose 139 H
POC Glucose 132 H 134 H
03/07/25 03/07/25
07:10 08:01
Glucose
POC Glucose 122 H 123 H
Meal type: Lunch
Patient Education
[2025-03-07 09:09] LABS: Glucose - Point of Care 102 mg/dl (70-99)
[2025-03-07 10:08] LABS: Glucose - Point of Care 102 mg/dl (70-99)
[2025-03-07] MEDS: NSS IV (10:17)
--- NOTE | 2025-03-07 10:55 | CM ---
Addendum entered by Kelle Escoto RN 03/07/25 12:10:
Patient is agreeable to cost. Free 30 day coupon placed in the patient's red discharge folder.
Original Note:
Pricing on Farxiga 10mg is $145 for a 30 day supply
Jardiance 10mg is $152 for a 30 day supply
--- NOTE | 2025-03-07 12:00 | PTCARENOTE ---
Pt reassessed. Pt remains SR-ST with rates in 90s-100s. BP 138/56 CT [employer] notified. Epicardial v-wire insulated. CI 3.06, dobutamine titrated off at 1130. POX 95% on 2L NC, attempted to titrate to RA, POX 90%, 2L reapplied. Pt tolerating clear liquid
diet. Moise continues to drain adequate amounts of clear yellow urine. Surgical sites stable. CT output WNL. Pt c/o 04/01 pain, see MAR.
--- NOTE | 2025-03-07 12:04 | CM ---
Chart reviewed. Patient lying in bed. Patient is independent of ADLS, lives alone in a 1 [address], 5 ZHANG, 0 DME. Plan is for the patient to return home vs sister's house with CT Transitional RN. CM to follow
[2025-03-07] MEDS: ROXICODONE 10 MG PO ×2 (12:10→19:52)
[2025-03-07 12:16] LABS: Glucose - Point of Care 100 mg/dl (70-99)
--- NOTE | 2025-03-07 13:30 | PTCARENOTE ---
Right radial shania and Right IJ swan d/c per orders. Hemostasis achieved. Pt tolerated. B/l leg camille wraps d/c. Right leg ulcers x2 noted. No open wounds noted to left leg. Wounds dressed with adaptic, gauze, abd, yael. Pt assisted OOB x2 assist.
Tolerated.
[2025-03-07] MEDS: ZESTRIL 10 MG PO ×2 (13:35→19:53)
[2025-03-07] MEDS: NORVASC 5 MG PO (13:35)
[2025-03-07] MEDS: FERRLECIT 110 MG IV (13:35)
[2025-03-07 13:40] LABS: Glucose - Point of Care 112 mg/dl (70-99)
--- NOTE | 2025-03-07 14:24 | WOUNDNOTE ---
[facility] RN note: Patient admitted with detected multivessel disease, s/p coronary artery bypass graft and left atrial appendage clip placement, POD # 1
See H&P for complete history.
PMH: Per Physician note, Diabetes, hypertension, obesity, hyperlipidemia, reported history of renal tumor, neuropathy, nephrolithiasis, lower extremity edema, question lymphedema.
Wound Location and type/assessment: Patient admitted with venous wounds to right lateral leg. Surrounding skin with with pink, newly healed skin. Patient has stated he has had wound for a long time and is treating at home by keeping a moist wound
bed and using compression. The wound beds are pink. Sacrum is intact.
Appetite: Good
Pressure redistribution devices in place: Centrella Max Air, air cushion to chair, heels off-loaded with pillow under calves when in bed.
Plan: Wound cleaned with saline and covered with adaptic and ABD. Confirmed order for compression with CLIFF. This assembly instructions writer called SPD and ordered 2, 6 inch CLIFF bandages. KATT Flowers to apply and given update on plan for wound care. Updated care plan
and will follow as needed.
Note to case management of equipment requested for discharge:
Recommend follow up at wound care center upon discharge.
--- NOTE | 2025-03-07 15:35 | WOUNDNOTE ---
RIGHT LATERAL LOWER LEG
--- NOTE | 2025-03-07 15:35 | WOUNDNOTE ---
RIGHT LATERAL LOWER LEG
--- NOTE | 2025-03-07 15:36 | WOUNDNOTE ---
LEFT LATERAL LOWER LEG
--- NOTE | 2025-03-07 15:37 | WOUNDNOTE ---
BILATERAL LOWER LEGS
--- NOTE | 2025-03-07 15:38 | WOUNDNOTE ---
LEFT MEDIAL LOWER LEG
--- NOTE | 2025-03-07 16:00 | PTCARENOTE ---
Pt reassessed. Pt denies pain. ST with rates in the low 100s. BP 117/62. CT output WNL. UO adequate. Surgical sites stable. Insulin continues to infuse. Cordis & PIV intact. Pt resting in the chair. No acute changes.
[2025-03-07 16:08] LABS: Glucose - Point of Care 94 mg/dl (70-99)
--- NOTE | 2025-03-07 17:27 | W.PN.CD ---
Today's Communication / Plan
-
wean inotropes as able
Cont post-op care
Impression / Plan
-
69-year-old male with history of diabetes is noted to have multivessel coronary artery disease and underwent coronary artery bypass grafting and ALFREDO clip
.
Coronary artery disease -status post coronary artery bypass grafting x 5 and ALFREDO clip by Dr. French 03/06/2025
- now extubated
- wean inotropes as able
- Postop care per CT surgery
.
Diabetes management per protocol.
Anemia. History of anemia. Monitor postop anemia.
.
History of resection of right kidney tumor
ECG 03/06/2025 sinus bradycardia
.
Physical Exam
Vital Signs/Labs
Vital Signs
Temp Pulse Resp BP Pulse Ox
98.3 F 101 20 120/69 94
03/07/25 16:00 03/07/25 17:00 03/07/25 16:00 03/07/25 17:00 03/07/25 17:00
03/06/25 03/07/25 03/08/25
06:59 06:59 06:59
Actual Weight 261 lb 7.492 oz 264 lb 12.403 oz
03/07/25 03:29
03/07/25 03:29
PT 18.2 Sec (11.4-14.6) H 03/06/25 13:07
INR 1.49 03/06/25 13:07
APTT 27.4 Sec (23.4-35.0) 03/06/25 13:07
Magnesium 2.2 mg/dl (1.6-2.3) 03/07/25 03:29
Physical Exam
Constitutional: No acute distress and Comfortable
EENT: Anicteric
Cardiovascular: Rhythm & rate is regular
Respiratory: Respiratory effort normal
GI: Soft
Neuro/Psych: AO x 3
Data Reviewed
-
Date of Service: March 07, 2025
EKG: Tracing Personally Visualized and interpreted (sr)
Labs: Labs Reviewed by me
[2025-03-07 18:02] LABS: Glucose - Point of Care 100 mg/dl (70-99)
[2025-03-07] MEDS: REMOVE LIDOCAINE PATCH 1 PATCH REMOVE (19:52)
[2025-03-07] MEDS: LOPRESSOR 12.5 MG PO (19:53)
[2025-03-07 20:00] LABS: Glucose - Point of Care 104 mg/dl (70-99)
--- NOTE | 2025-03-07 20:00 | PTCARENOTE ---
Assumed care of patient at 1900. AOx4, c/o 8/10 MS pain, BARKER. ST on CM, rates low 100's, rub heard on auscultation, pulses palpable, baseline +2 edema in lower extremities, V-wire insulated. 89-90% on RA, 2LNC initiated with an SpO2 of 94%, lung dim
at the bases, CTx2 to -20 cm wall suction, no air leak, tidaling, or crepitus noted, serous drainage. Abd SNT, obese, hypoactive BS, poor appetite, no nausea. Moise draining clear yellow urine. MSI CDI MULTIMEDIA DESIGNER well approximated, CT dressing CDI, all
other surgical sites MULTIMEDIA DESIGNER CDI with Dermabond, POA venous ulcerations with dressing intact. RIJ Cordis, PIV x1 infusing insulin per protocol. See nursing worklist for director of medicare and additional assessments; POC discussed with patient, in agreement,
assessment of needs ongoing, call newton within reach.
[2025-03-07] MEDS: LIPITOR 40 MG PO (21:12)
[2025-03-07 22:18] LABS: Glucose - Point of Care 117 mg/dl (70-99)
[2025-03-08] VITALS (27 sets, daily range): BP systolic 100–161; BP diastolic 62–82; PULSE 92; O2SAT 94–95; BMI 35.8
--- NOTE | 2025-03-08 | PTCARENOTE ---
Patient hypertensive, CVPA aware. Pain management, patient attempting to sleep between care.
[2025-03-08 00:16] LABS: Glucose - Point of Care 103 mg/dl (70-99)
[2025-03-08] MEDS: ROXICODONE 10 MG PO ×2 (00:30→05:46)
[2025-03-08 02:12] LABS: Glucose - Point of Care 107 mg/dl (70-99)
[2025-03-08] MEDS: DILAUDID 0.5 MG IV (02:15)
--- NOTE | 2025-03-08 03:57 | PTCARENOTE ---
Patient hypertensive. CVPA aware, see MAR. Pain management continued, therapeutic communication utilized and education provided about expected pain goals, nonpharmacological measures, and patient safety. Patient indicated understanding, care plan
ongoing.
[2025-03-08] MEDS: LOPRESSOR 25 MG PO ×2 (04:10→20:54)
[2025-03-08 04:15] LABS: Glucose - Point of Care 112 mg/dl (70-99)
[2025-03-08 04:27] LABS: Hematocrit 28.8 % (39.0-52.0); Hemoglobin 9.5 g/dL (13.0-18.0); Mean Corp Hgb Conc. 33.0 g/dL (33.0-37.0); Mean Corpuscular Volume 89.4 fL (80.0-94.0); Platelet Count 127 10^3/uL (130-400); Red Cell Dist. Width 16.3 % (11.5-14.5)
[2025-03-08 04:50] LABS: Blood Urea Nitrogen 22 mg/dl (9-20); Calcium 8.1 mg/dl (8.4-10.2); Carbon Dioxide 25 mmol/L (22-30); Chloride 106 mmol/L (98-107); Estimated Creatinine Clearance 120 ml/min; Glucose 111 mg/dl (70-99); Magnesium 2.3 mg/dl (1.6-2.3); Potassium 4.7 mmol/L (3.5-5.1); Sodium 136 mmol/L (135-145); eGFR > 60.00
[2025-03-08] MEDS: MYLICON 160 MG PO (05:46)
[2025-03-08] MEDS: TYLENOL 1000 MG PO ×3 (05:48→21:00)
[2025-03-08 06:04] LABS: Glucose - Point of Care 101 mg/dl (70-99)
--- NOTE | 2025-03-08 07:49 | W.PN.CT ---
Documented by User: Nicloe Washington PA-C 03/08/25 07:49
Today's Communication / Plan
-
-pod #2
-no significant issues overnight
-drips: insulin
-hypertension, tachycardia - will increase Lopressor to 25 bid (takes 50 mg Toprol qd at home)- gave BB early this am
-s/p 1 pRBC on 03/07 for Hg 7.4. Hg today 9.5
-CT output: 2 meds 135/335 in 12/24 hrs
-distended abdomen, no nausea, no pain - Simethicone, Reglan, increase ambulation
-current meds (ASA, Plavix, Lipitor, Lopressor 25 bid, Norvasc 5 qd, Lisinopril 10 bid Amio, Protonix).
-encourage IS, OOB, ambulate
-appreciate everyone's input
Assessment / Plan
-
- Mv-CAD- s/p CABG x 5 (In situ ABARCA to diagonal sequential to to LAD, Ao to RSVG to ramus, Ao to RSVG to RPDA sequential to LPL); LAAE [35 mm device] by Dr. French on 03/06/25, pod #2
- Intraop JOSIE: LVEF 60% pre and postop with no significant regional wma. His aortic valve was interrogated on transesophageal echocardiogram and found to have no significant insufficiency and no stenosis. His left atrial appendage was verified to
be free of any thrombus or debris preoperatively and found to be totally occlusive postoperatively.
- Unstable angina, multivessel coronary disease involving the proximal LAD
- DM II (A1c 8.6)
- Hypertension
- Class 2 obesity with a BMI of 35
- Hyperlipidemia
- Nephrolithiasis
- R renal CA, s/p nephrectomy
- Chronic venous stasis changes and lymphedema bilateral lower extremities
- Acute on chronic postop blood loss anemia- 1 pRBC on 03/07
- Acute postop atelectasis
- Acute postop hypovolemia with subsequent hypervolemia
- Acute postop suspected pericarditis on ECG/ + rub
- Acute postop abdominal distention
Discussed patient care with: Nursing and Care Team
Subjective
-
Date of Service: March 08, 2025
Objective Data
-
PT 18.2 Sec (11.4-14.6) H 03/06/25 13:07
INR 1.49 03/06/25 13:07
APTT 27.4 Sec (23.4-35.0) 03/06/25 13:07
Vital Signs
Vital Signs
Temp Pulse Resp BP Pulse Ox
99.7 F 102 20 140/78 95
03/08/25 00:00 03/08/25 00:20 03/08/25 00:00 03/08/25 00:00 03/08/25 00:20
CT Intake/Output/Weight
03/07/25 03/07/25 03/08/25
06:59 18:59 06:59
Intake Total 637.6 / 1648.2 1348.6 / 1588.2 239.6 / 1588.2
Output Total 780 / 1335 740 / 1200 460 / 1200
Balance -142.4 / 313.2 608.6 / 388.2 -220.4 / 388.2
SaO2: 95
Physical Exam
-
General: Awake and AOx3
Cardiovascular: Regular rate & rhythm, No Murmurs and Rub
Respiratory: Decreased Breath Sounds
Sternum: Stable
Incision: Clean, Dry and Intact
Extremities: Edema +2 (chronic lymphedema b/l, has dressed wound on R calf)
Abdomen: soft, nontender, + bowel sounds
Data Reviewed
-
Lab Results: Results Reviewed
Medications: Active Meds Reviewed
Chest X-Ray: Report Reviewed and Image Reviewed
ECG: Report Reviewed and Image Reviewed

Documented by User: Romana Shahid, CRNP 03/08/25 11:57
Assessment / Plan
-
- Mv-CAD- s/p CABG x 5 (In situ ABARCA to diagonal sequential to to LAD, Ao to RSVG to ramus, Ao to RSVG to RPDA sequential to LPL); LAAE [35 mm device] by Dr. French on 03/06/25, pod #2
- Intraop JOSIE: LVEF 60% pre and postop with no significant regional wma. His aortic valve was interrogated on transesophageal echocardiogram and found to have no significant insufficiency and no stenosis. His left atrial appendage was verified to
be free of any thrombus or debris preoperatively and found to be totally occlusive postoperatively.
- Unstable angina, multivessel coronary disease involving the proximal LAD
- DM II (A1c 8.6)
- Hypertension
- Class 2 obesity with a BMI of 35
- Hyperlipidemia
- Nephrolithiasis
- R renal CA, s/p nephrectomy
- Chronic venous stasis changes and lymphedema bilateral lower extremities
- Acute on chronic postop blood loss anemia- 1 pRBC on 03/07
- Acute postop atelectasis
- Acute postop hypovolemia with subsequent hypervolemia
- Acute postop suspected pericarditis on ECG/ + rub
- Acute postop abdominal distention-
- Acute post op pulmonary insufficiency
[2025-03-08 08:00] LABS: Glucose - Point of Care 109 mg/dl (70-99)
--- NOTE | 2025-03-08 08:00 | PTCARENOTE ---
Resumed care of patient. Walking rounds completed with previous RN. Pt assessed while he was sitting in the chair. pt alert and oriented x4. Pt rates sternal pain 3/10. C/o intermittent nausea, specifically when eating yogurt. BARKER with equal
strength throughout. 2 assist to get OOB. SR-ST on tele with rates in the 90s-100s. BP 116/72. +Rub. Bilateral radial and DP pulses palpable. Lower extremity edema +2. Epicardial v-wire insulated. POX 95% on RA. Lung diminished in the bases. IS
encouraged-750mL achieved. Mediastinal chest tubes x2 y-sited to 1 atrium to -20cm suction draining serous fluid. No air leaks, tidaling, crepitus noted. Occasional moist cough noted. Abdomen round, obese, distended. Pt states this is his normal at
home. Pt reports occasional gas. Poor appetite. Moise catheter intact draining adequate amounts of clear yellow urine. Sternal incision approximated with skin glue, INDEPENDENT DRIVER. CT dressing CDI. Right groin incision approximated with skin glue, INDEPENDENT DRIVER. Left
groin puncture site approximated with skin glue, SHANNA. Right knee incision approximated with skin glue, INDEPENDENT DRIVER. Left knee incision approximated with skin glue, SHANNA. Right lateral leg venous sores covered, CDI. Right IJ cordis intact. Right wrist 20g PIV
intact infusing insulin per Critical Care Glycemic Protocol. See MAR for medication administration. See worklist for complete nursing assessment. Plan of care reviewed and patient in agreement.
[2025-03-08] MEDS: LIDOCAINE 4% PATCH 1 PATCH TOPICAL (08:25)
[2025-03-08] MEDS: NOVOLOG FLEXPEN 4 UNITS SC (08:25)
[2025-03-08] MEDS: BACTROBAN 2% OINTMENT 1 APPLIC NASAL ×2 (08:25→20:54)
[2025-03-08] MEDS: PROTONIX 40 MG PO (08:26)
[2025-03-08] MEDS: FLEXERIL 5 MG PO (08:26)
[2025-03-08] MEDS: NORVASC 5 MG PO (08:26)
[2025-03-08] MEDS: FEOSOL 325 MG PO (08:26)
[2025-03-08] MEDS: PACERONE 200 MG PO ×3 (08:26→21:00)
[2025-03-08] MEDS: LOW STRENGTH ASPIRIN 81 MG PO (08:26)
[2025-03-08] MEDS: ZESTRIL 10 MG PO ×2 (08:26→20:54)
[2025-03-08] MEDS: PLAVIX 75 MG PO (08:27)
[2025-03-08] MEDS: REGLAN 10 MG PO ×3 (08:27→17:21)
[2025-03-08] MEDS: MAGNESIUM OXIDE 500 MG PO ×2 (08:27→20:53)
[2025-03-08] MEDS: SENOKOT-S 1 TABLET PO ×2 (08:27→20:54)
[2025-03-08] MEDS: VITAMIN C 500 MG PO (08:27)
[2025-03-08] MEDS: NEURONTIN 100 MG PO (08:27)
[2025-03-08] MEDS: NSS 500 IV (08:27)
--- NOTE | 2025-03-08 08:37 | W.PN.INTV ---
Addendum entered and electronically signed by Colton Martinez MD 03/08/25 13:01:
Human Resources Benefits Administrator service will sign off once patient is transferred out of ICU. Please call as needed
Original Note:
Today's Communication / Plan
Recommendations
- Incentive spirometry
- Sit in chair and increase activity as tolerated
Assessment
-
69-year gentleman with newly detected multivessel disease, s/p coronary artery bypass graft and left atrial appendage clip placement, POD # 2
Titrated off pressors per protocol, MAP 86. Not requiring any pressor support
ECHO reviewed with normal LVEF.
PA catheter removed
Management of chest tubes per primary service
Patient extubated, currently on room air, saturating 96%. Not in any respiratory distress
No prior history of pulmonary disease, smoked very briefly before age 22 none since. Reports secondhand smoke exposure however
Prior PFTs reviewed
Can add nebulizers if needed
Aspiration precautions
Encouraged incentive spirometry, OOB/ambulation/early mobility. Patient able to pull barely 500 mL. Encouraged to work with incentive spirometer as often as he can. Sit in chair as tolerated.
Advance diet as tolerated following extubation
GI prophylaxis: protonix
Monitor critical I/O's
Moise/chest tube output
Hb, was down to 7.4, now 9.5 this morning.
Trend CBC for now
Can transfuse if indicated for Hb <7, plt <50 in surgical patients
DVT prophylaxis including SCDs
Insulin protocol initiated and ongoing
Transition to SQ/off as indicated per team
Medical diagnoses:
- CAD s/p CABG and ALFREDO clip 02/2025. On aspirin, Plavix, atorvastatin
- HTN, HLD
- DM
- H/o Asbestos exposure
- History of renal tumor, s/p resection in the past.
- Concern for sleep disordered breathing, witnessed apnea in hospital. Will pursue sleep study as out patient. Information left in the chart
Critical Care time 42 mins -- The patient is admitted for acute critical illness for the treatment of vital organ failure and/or prevention of further life-threatening conditions. Total care includes time spent in review of history, physical exam,
medications, hemodynamic/ventilator parameters, laboratory data, imaging and discussion with house staff, pharmacy, respiratory therapy, group home paraprofessional, and nursing.
Data:
CXR 02/2025: Mild LLL atelectasis. Otherwise unremarkable
JOSIE 02/2024: Normal left ventricular size and systolic function, mild LVH, stage I diastolic dysfunction.
No significant aortic valve disease.
The aorta has atheroma less than 5 mm and mild calcifications.
Mild left atrial enlargement.
Trace MR. Mild MAC.
Trace TR
Subjective Dataa
Subjective Data
Date of Service:
Date of Service: March 08, 2025
Subjective:
Patient comfortably sitting in chair in no acute distress.
Review of Systems
Genitourinary: Other (All 14 systems reviewed and negative except as stated above in the history of present illness.)
Objective Data
Data Reviewed
Vital Signs / I&O / Oxygen:
Vital Signs
Temp Pulse Resp BP Pulse Ox
99.7 F 115 18 139/79 91
03/08/25 06:00 03/08/25 06:00 03/08/25 06:00 03/08/25 06:00 03/08/25 06:00
Intake and Output
03/07/25 03/08/25 03/09/25
06:59 06:59 06:59
Intake Total 1613.1 / 1648.2 1939.4 / 1939.4
Output Total 1255 / 1335 1540 / 1540
Balance 358.1 / 313.2 399.4 / 399.4
SaO2 [CPAP/PSV] 99
SaO2 [SIMV] 98
SaO2 91
Nasal Cannula flow liters per 2
minute
Physical Exam
General: Comfortable
HEENT: Normocephalic
Cardiovascular: S1-S2 and Peripheral Edema
Respiratory: Clear and Non-Labored Respirations
GI: Soft and Non Distended
Neurology: Awake and Alert
Skin: Warm
Labs/Micro/Reports
Lab Data
03/08/25 04:13
03/08/25 04:13
Microbiology
03/05/25 08:42 Nose MRSA Screen - Final
Staph aureus MRSA
--- NOTE | 2025-03-08 08:38 | PN.DE.MGMTRT ---
Insulin Management
- -
03/08/2025: Diabetes Management Consult Follow up
Patient admitted 03/06 for an elective AVR, CABG. PMH: MVCAD, HTN, HLD, Obesity, ex-smoker, 5 pack years, quit at age 22, Neck and back pain, Abdominal hernia, R kidney tumor, + Cancer - nephrectomy, Neuropathy, Nephrolithiasis, Anemia and IDDM.
Prior to admission was taking Basaglar 40 units in AM, NovoLog SS AC. A1C 8.6%, Cr 0.9, eGFR >60.
Pt is awake alert and oriented, able to discuss diabetes care. States he has had diabetes 40+ years. He has a Moshe 3 CGM for glucose monitoring and sees his primary doctor for ongoing diabetes care.
POD # 2 S/P AVR, CABG x4. Currently on Critical care glycemic protocol insulin infusion requiring 3 to 6 units of insulin per hour. Glucose range 123 to 144. Cr .8, eGFR > 60.
Transition from glycemic protocol insulin infusion. Give 40 units lantus @ 0900, insulin infusion off 2 hours after administered. Start Farxiga 10 mg daily, 5 units novolog AC with low corrective insulin with lunch.
Will closely follow and monitor
Discussed with Nurse.
Diabetes History
- -
Type of Diabetes: 2 requiring insulin
Pre-Admission Diabetes Regimen
03/08/25
04:13
Creatinine 0.8
Lab Results
Hemoglobin A1c 8.6 % (4.0-5.6) H 03/05/25 08:42
Insulin Pump Settings
IP Diabetes Regimen
03/07/25 03/07/25 03/07/25
09:06 10:07 12:14
Glucose
POC Glucose 102 H 102 H 100 H
03/07/25 03/07/25 03/07/25
13:39 16:03 18:00
Glucose
POC Glucose 112 H 94 100 H
03/07/25 03/07/25 03/08/25
19:58 22:17 00:15
Glucose
POC Glucose 104 H 117 H 103 H
03/08/25 03/08/25 03/08/25
02:11 04:13 04:14
Glucose 111 H
POC Glucose 107 H 112 H
03/08/25 03/08/25
06:02 07:59
Glucose
POC Glucose 101 H 109 H
Patient Education
[2025-03-08] MEDS: COLCHICINE 0.3 MG PO (09:45)
[2025-03-08] MEDS: LANTUS 0.4 UNITS SC (09:45)
[2025-03-08] MEDS: FARXIGA 10 MG PO (09:45)
[2025-03-08 09:51] LABS: Glucose - Point of Care 131 mg/dl (70-99)
--- NOTE | 2025-03-08 10:00 | PTCARENOTE ---
Pt ambulated to the door with RN and cardiac rehab. Assisted back to bed. CT WASH CREW PERSON at bedside to pull epicardial v-wire. q15min vitals and CT output monitored. Right IJ cordis dressing changed.
--- NOTE | 2025-03-08 10:02 | W.PN.UPDATE ---
Update Note
Progress Note Update
No pacing required overnight, maintaining sinus rhythm. One temporary bipolar V-wire removed without difficulty. Bedrest x 1 hour and vital signs q15min x 1 hour
[2025-03-08] MEDS: FARXIGA PO (10:42)
--- NOTE | 2025-03-08 11:03 | PN.CDI ---
CDI
- -
CDI:
Physician Documentation Request
Admit Date: 03/06/25 04:[address] Surgery,
Clinical Indicators:
Patient admitted with MV CAD;s/p CABG x 5, LAAE 03/06.
03/07 (20:00) RN note, '...89-90% on RA, 2LNC initiated with an SpO2 of 94%'
02 requirements:
03/06/25
21:00 03/07/25
00:00 03/07/25
12:00
Nasal Cannula flow liters per minute 2 3 2
03/07/25
18:00 03/07/25
20:04
Oxygen Mode of Delivery Room air
Nasal Cannula flow liters per minute 2
Please clarify which of the following accurately represents the patient's respiratory status following surgery:
Acute post op pulmonary insufficiency
Hypoxia only
Other, please specify
Additional information for Pulmonary Insufficiency:
Consider when patients require group home oxygen therapy postoperatively
Weaned off oxygen initially then requiring supplemental oxygen
No other definitive diagnosis to support the need for oxygen (COPD exac, CHF etc.)
Unable to wean from vent
When criteria for respiratory failure not present
May extend stay or require additional resources; may need home O2
Additional information for Respiratory Failure:
Recognized criteria for Respiratory Failure (Source: [facility] Hospitalist Jun 2013)
ABGs: (1 or more) Symptoms Indicate:
1. p)2 <60 or RA SPO2 <91% on RA 1. Tachypnea, SOB, dyspnea 1. Type as:
2. pCO2 50 and pH <7.35 2. Use of accessory muscles a. Hypoxic
3. pO2 decrease of pCO2 increase by 3. Pallor or cyanosis b. Hypercapnic
10 mmHg from baseline if known 4. Anxiety or restlessness 2. If due to procedure or due to another cause
5. Unable to speak in full sentences
Supplemental O2 of > 40% Intubation is not required
Use of terms such as suspected, likely, concern for, or probable (associated with a specific diagnosis that is being evaluated, monitored, or treated as if it exists) are acceptable and can be coded in the inpatient setting, when documented at the
time of discharge.
Thank you,
SENTHIL Ford RN
CDI Specialist
available via tiger text
Please use your independent medical judgment in providing your response.
--- NOTE | 2025-03-08 11:19 | CM ---
Chart reviewed. Patient is independent of ADLS, lives alone in a 1 STH, 5 ZHANG, 0 DME. Patient unsure if he wants to go or his sisters. Plan is for the patient to return home vs sisters with CT Transitional RN. CM to follow
[2025-03-08 11:24] LABS: Glucose - Point of Care 104 mg/dl (70-99)
--- NOTE | 2025-03-08 11:30 | PTCARENOTE ---
CT output scant following v-wire removal. Pt tolerated. Moise d/c. pt tolerated. Right lower leg venous wound dressing changed.
[2025-03-08] MEDS: FERRLECIT 110 MG IV (13:10)
[2025-03-08] MEDS: NOVOLOG FLEXPEN-LOW RESISTANCE SC (13:11)
[2025-03-08 13:12] LABS: Glucose - Point of Care 95 mg/dl (70-99)
--- NOTE | 2025-03-08 13:47 | W.PN.CD ---
Today's Communication / Plan
-
Remains in sinus. Hemodynamically stable. Continue postop care as directed by CT surgery
Impression / Plan
-
69-year-old male with history of diabetes is noted to have multivessel coronary artery disease and underwent coronary artery bypass grafting and ALFREDO clip
.
Coronary artery disease -status post coronary artery bypass grafting x 5 and ALFR[address] clip by Dr. French 03/06/2025
- Postop care per CT surgery
- Remains in sinus continue to monitor on telemetry
.
Diabetes management per protocol.
Anemia. History of anemia. Monitor postop anemia.
.
History of resection of right kidney tumor
.
Physical Exam
Vital Signs/Labs
Vital Signs
Temp Pulse Resp BP Pulse Ox
97.4 F 96 18 119/66 93
03/08/25 11:00 03/08/25 13:00 03/08/25 11:00 03/08/25 11:21 03/08/25 11:00
03/07/25 03/08/25 03/09/25
06:59 06:59 06:59
Actual Weight 120.1 kg 119.6 kg
03/08/25 04:13
03/08/25 04:13
PT 18.2 Sec (11.4-14.6) H 03/06/25 13:07
INR 1.49 03/06/25 13:07
APTT 27.4 Sec (23.4-35.0) 03/06/25 13:07
Magnesium 2.3 mg/dl (1.6-2.3) 03/08/25 04:13
Physical Exam
Constitutional: No acute distress
Cardiovascular: Rhythm & rate is regular
Respiratory: Wheeze Absent and Rhonchi Absent
GI: Soft
Neuro/Psych: Alert
Data Reviewed
-
Date of Service: March 08, 2025
Medical Decision Making: Reviewed Test Results
X-Ray/CT/US/MRI/NUC/PET: Report Reviewed by me
Medical Tests (PFT, Pathology etc): Report Reviewed by me
Labs: Labs Reviewed by me
[2025-03-08] MEDS: NOVOLOG FLEXPEN SC (14:02)
[2025-03-08] MEDS: LASIX 40 MG IV (14:26)
[2025-03-08] MEDS: ROXICODONE 5 MG PO (15:57)
--- NOTE | 2025-03-08 16:00 | PTCARENOTE ---
Pt reassessed. ST with rates in the 90s-100s. BP 126/75. POX 92% on RA. IS encouraged. Surgical sites stable. Voided 500mL clear taylor urine. No acute changes.
[2025-03-08] MEDS: NOVOLOG FLEXPEN-LOW RESISTANCE 1 UNITS SC (17:21)
[2025-03-08] MEDS: NOVOLOG FLEXPEN 5 UNITS SC (17:21)
[2025-03-08 17:24] LABS: Glucose - Point of Care 151 mg/dl (70-99)
--- NOTE | 2025-03-08 20:00 | SUR.PHASEI ---
Resumed care of patient at 1900. Patient remains neurologically intact, AOx4, pain improved, BARKER, OOB to chair. Endorses feelings of anxiety, CVPA aware, awaiting orders. ST on CM, rates low 100's, rub persists, pulses palpable, baseline +2 edema in
lower extremities. SpO2 of 93% on RA, lung dim at the bases. Abd NT, obese, distended, hypoactive BS, no nausea, per patient distention is baseline, passing flatus/belching. Voiding without difficulty in the urinal. All surgical sites stable and
intact, POA venous ulcerations with dressing intact. RIJ Cordis, PIV x1 INT. POC discussed with patient, in agreement, assessment of needs ongoing, call newton within reach. See nursing worklist for additional intervention details.
[2025-03-08] MEDS: REMOVE LIDOCAINE PATCH 1 PATCH REMOVE (20:54)
[2025-03-08] MEDS: LIPITOR 40 MG PO (21:00)
[2025-03-08 22:54] LABS: Glucose - Point of Care 169 mg/dl (70-99)
[2025-03-08] MEDS: XANAX 0.25 MG PO (22:58)
[2025-03-08] MEDS: NOVOLOG FLEXPEN 1 UNITS SC (23:06)
--- NOTE | 2025-03-08 23:58 | PTCARENOTE ---
Patient hyperglycemic, given 1u insulin per CVPA. Xanax one time order for anxiety. Sleeping between are, BP improved.
[2025-03-09] VITALS (13 sets, daily range): BP systolic 109–155; BP diastolic 47–66; PULSE 100; O2SAT 97; BMI 35.2
--- NOTE | 2025-03-09 04:00 | PTCARENOTE ---
No acute changes, patient sleeping between care. VSS
[2025-03-09 04:21] LABS: Hematocrit 30.4 % (39.0-52.0); Hemoglobin 9.9 g/dL (13.0-18.0); Mean Corp Hgb Conc. 32.6 g/dL (33.0-37.0); Mean Corpuscular Volume 90.5 fL (80.0-94.0); Platelet Count 187 10^3/uL (130-400); Red Cell Dist. Width 16.6 % (11.5-14.5)
[2025-03-09 04:46] LABS: Blood Urea Nitrogen 33 mg/dl (9-20); Calcium 8.2 mg/dl (8.4-10.2); Carbon Dioxide 23 mmol/L (22-30); Chloride 104 mmol/L (98-107); Estimated Creatinine Clearance 96 ml/min; Glucose 181 mg/dl (70-99); Magnesium 2.5 mg/dl (1.6-2.3); Potassium 4.8 mmol/L (3.5-5.1); Sodium 135 mmol/L (135-145); eGFR > 60.00
--- NOTE | 2025-03-09 05:33 | W.PN.CT ---
Today's Communication / Plan
-
-pod #3
-no significant issues overnight
-felt anxious - got Xanax x1
-tachycardia high 90s overnight - will increase Lopressor to 50 bid (takes 50 mg Toprol qd at home). Watch for dizziness (Gabapentin is held for possible dizziness). Can decrease Norvasc if hypotension becomes an issue to allow higher BB dose
-s/p 1 pRBC on 03/07 for Hg 7.4.
-diuresed with 40 iv Lasix on 03/08- UO 1025/2120 in 12/24 hrs
-distended abdomen, no nausea, no pain, +flatus - Simethicone, Reglan, increase ambulation
-current meds (ASA, Plavix, Lipitor, Lopressor 50 bid, Norvasc 5 qd, Lisinopril 10 bid, Amio, Protonix, Farxiga).
-encourage IS, OOB, ambulate
-appreciate everyone's input
Assessment / Plan
-
- Mv-CAD- s/p CABG x 5 (In situ ABARCA to diagonal sequential to to LAD, Ao to RSVG to ramus, Ao to RSVG to RPDA sequential to LPL); LAAE [35 mm device] by Dr. French on 03/06/25, pod #3
- Intraop JOSIE: LVEF 60% pre and postop with no significant regional wma. His aortic valve was interrogated on transesophageal echocardiogram and found to have no significant insufficiency and no stenosis. His left atrial appendage was verified to
be free of any thrombus or debris preoperatively and found to be totally occlusive postoperatively.
- Unstable angina, multivessel coronary disease involving the proximal LAD
- DM II (A1c 8.6)
- Hypertension
- Class 2 obesity with a BMI of 35
- Hyperlipidemia
- Nephrolithiasis
- R renal CA, s/p nephrectomy
- Chronic venous stasis changes and lymphedema bilateral lower extremities
- Acute on chronic postop blood loss anemia- 1 pRBC on 03/07
- Acute postop atelectasis
- Acute postop hypovolemia with subsequent hypervolemia
- Acute postop suspected pericarditis on ECG/ + rub
- Acute postop abdominal distention-
- Acute post op pulmonary insufficiency
- Acute postop anxiety
Discussed patient care with: Nursing and Care Team
Subjective
-
Date of Service: March 09, 2025
Objective Data
-
PT 18.2 Sec (11.4-14.6) H 03/06/25 13:07
INR 1.49 03/06/25 13:07
APTT 27.4 Sec (23.4-35.0) 03/06/25 13:07
Vital Signs
Vital Signs
Temp Pulse Resp BP Pulse Ox
97.6 F 97 20 136/71 93
03/09/25 00:00 03/09/25 00:01 03/09/25 00:00 03/08/25 23:58 03/08/25 23:58
CT Intake/Output/Weight
03/08/25 03/08/25 03/09/25
06:59 18:59 06:59
Intake Total 590.8 / 1951.8 376.4 / 646.4 270 / 646.4
Output Total 800 / 1540 1135 / 1515 380 / 1515
Balance -209.2 / 411.8 -758.6 / -868.6 -110 / -868.6
SaO2: 93
Physical Exam
-
General: Awake and AOx3
Cardiovascular: Regular rate & rhythm, No Murmurs and Rub
Respiratory: Decreased Breath Sounds
Sternum: Stable
Incision: Clean, Dry and Intact
Abdomen: soft, nontender, + bowel sounds
Extremities: Edema +2 (chronic lymphedema b/l, has dressed wound on R calf)
Data Reviewed
-
Lab Results: Results Reviewed
Medications: Active Meds Reviewed
Chest X-Ray: Report Reviewed and Image Reviewed
ECG: Report Reviewed and Image Reviewed
[2025-03-09] MEDS: TYLENOL 1000 MG PO ×3 (06:14→21:09)
--- NOTE | 2025-03-09 07:22 | PN.DE.MGMTRT ---
Insulin Management
- -
03/09/2025: Diabetes Management Consult Follow up
Patient admitted 03/06 for an elective AVR, CABG. PMH: MVCAD, HTN, HLD, Obesity, ex-smoker, 5 pack years, quit at age 22, Neck and back pain, Abdominal hernia, R kidney tumor, + Cancer - nephrectomy, Neuropathy, Nephrolithiasis, Anemia and IDDM.
Prior to admission was taking Basaglar 40 units in AM, NovoLog SS AC. A1C 8.6%, Cr 0.9, eGFR >60.
Pt is awake alert and oriented, able to discuss diabetes care. States he has had diabetes 40+ years. He has a Moshe 3 CGM for glucose monitoring and sees his primary doctor for ongoing diabetes care.
POD # 3 S/P AVR, CABG x4. Currently on Critical care glycemic protocol insulin infusion requiring 3 to 6 units of insulin per hour. Glucose range 123 to 144. Cr .8, eGFR > 60.
03/08 Transitioned from glycemic protocol insulin infusion to home dose of lantus and novolog new medication Farxiga 10 mg daily with low corrective insulin.
03/09 Glucose stable 95 to 169 @ HS, did receive 1 units novolog @ HS. Fasting glucose this AM 181. Will increase AC novolog from 7 to 10, continue low corrective insulin AC, Farxiga 10 mg daily and increase Lantus to 44 units in AM.
Will follow.
Discussed with Nurse.
Diabetes History
- -
Type of Diabetes: 2 requiring insulin
Pre-Admission Diabetes Regimen
03/09/25
04:08
Creatinine 1.0
Lab Results
Hemoglobin A1c 8.6 % (4.0-5.6) H 03/05/25 08:42
Insulin Pump Settings
IP Diabetes Regimen
03/08/25 03/08/25 03/08/25
07:59 09:44 11:23
Glucose
POC Glucose 109 H 131 H 104 H
03/08/25 03/08/25 03/08/25
13:09 17:19 22:53
Glucose
POC Glucose 95 151 H 169 H
03/09/25
04:08
Glucose 181 H
POC Glucose
Meal type: Breakfast
Amount consumed: 15%
Patient Education
[2025-03-09 07:54] LABS: Glucose - Point of Care 219 mg/dl (70-99)
--- NOTE | 2025-03-09 08:00 | PTCARENOTE ---
Resumed care of patient. Walking rounds completed with previous RN. Pt assessed while he was sitting in the chair. Rates sternal pain 5/10. Denies nausea, and shortness of breath. BARKER with equal strength throughout. Ambulates with 1 assist and RW.
Encouraged ambulation. ST on tele with rates in the 100s. BP 129/62. +Rub. Bilateral radial and DP pulses palpable. +2 lower extremity edema. POX 95% on RA. Lungs diminished in the bases. IS encouraged-750mL. No cough noted. Abdomen round, obese,
distended. Hypoactive BS. Pt belching and passing gas. Poor appetite. Encouraged eating and ordering foods with limited smell. Pt states 'just the smell makes me want to barf'. Denies nausea. Voids adequate amounts of taylor urine. Sternal incision
approximated, SHANNA. Old chest tube sites covered, dressing changed. Right groin incision approximated with skin glue, SHANNA. Left groin puncture site approximated, SHANNA. right and left knee incisions approximated with skin glue, SHANNA. Right lateral calf
venous ulcers covered, CDI. Right IJ cordis intact. Right wrist 20g PIV intact. See MAR for medication administration. See worklist for complete nursing assessment. Plan of care reviewed and patient reluctantly in agreement.
[2025-03-09] MEDS: NOVOLOG FLEXPEN 7 UNITS SC ×2 (08:24→14:00)
[2025-03-09] MEDS: NOVOLOG FLEXPEN-LOW RESISTANCE 2 UNITS SC ×2 (08:24→13:59)
[2025-03-09] MEDS: SENOKOT-S 1 TABLET PO ×2 (08:25→19:42)
[2025-03-09] MEDS: BACTROBAN 2% OINTMENT 1 APPLIC NASAL ×2 (08:25→19:41)
[2025-03-09] MEDS: MILK OF MAGNESIA 30 ML PO (08:25)
[2025-03-09] MEDS: PROTONIX 40 MG PO (08:25)
[2025-03-09] MEDS: LOPRESSOR 50 MG PO (08:25)
[2025-03-09] MEDS: LIDOCAINE 4% PATCH 1 PATCH TOPICAL (08:25)
[2025-03-09] MEDS: FARXIGA 10 MG PO (08:25)
[2025-03-09] MEDS: ZESTRIL 10 MG PO ×2 (08:25→19:42)
[2025-03-09] MEDS: PACERONE 200 MG PO ×2 (08:25→15:13)
[2025-03-09] MEDS: LOW STRENGTH ASPIRIN 81 MG PO (08:26)
[2025-03-09] MEDS: NORVASC 5 MG PO (08:26)
[2025-03-09] MEDS: REGLAN 10 MG PO ×3 (08:26→17:47)
[2025-03-09] MEDS: PLAVIX 75 MG PO (08:26)
[2025-03-09] MEDS: COLCHICINE 0.3 MG PO (08:26)
[2025-03-09] MEDS: FEOSOL 325 MG PO (08:26)
[2025-03-09] MEDS: MAGNESIUM OXIDE PO ×2 (08:27→19:42)
[2025-03-09] MEDS: NSS IV (08:27)
[2025-03-09] MEDS: VITAMIN C 500 MG PO (08:29)
[2025-03-09] MEDS: LANTUS 0.4 UNITS SC (08:29)
[2025-03-09] MEDS: ROXICODONE 5 MG PO (08:42)
--- NOTE | 2025-03-09 11:00 | CARDSERVDEF ---
Echocardiogram with Definity completed after protocol screening completed. Allergies verified.
Patent IV site: _rt hand____
IV site flushed with 0.9% NaCl pre and post administration.
Diluted bolus method utilized to enhance visualization of ventricular varela.
Total volume given: 1.5__ mL
Patient tolerated all procedures well without complications.
--- NOTE | 2025-03-09 11:38 | W.PN.CD ---
Today's Communication / Plan
-
Hemodynamically stable.
Says he is feeling better today than yesterday
Remains in sinus rhythm
Diffuse ST changes on ECG likely pericarditis.
Await echo
Impression / Plan
-
69-year-old male with history of diabetes is noted to have multivessel coronary artery disease and underwent coronary artery bypass grafting and ALFREDO clip
.
Coronary artery disease -status post coronary artery bypass grafting x 5 and ALFREDO clip by Dr. French 03/06/2025
- Postop care per CT surgery
- Remains in sinus continue to monitor on telemetry
- ECG with diffuse ST elevation suggestive of pericarditis. Patient without symptoms echocardiogram ordered
.
Diabetes management per protocol.
Anemia. History of anemia. Monitor postop anemia.
.
History of resection of right kidney tumor
.
Physical Exam
Vital Signs/Labs
Vital Signs
Temp Pulse Resp BP Pulse Ox
99.1 F 100 20 155/57 95
03/09/25 08:00 03/09/25 09:48 03/09/25 08:00 03/09/25 09:48 03/09/25 08:00
03/08/25 03/09/25 03/10/25
06:59 06:59 06:59
Actual Weight 119.6 kg 117.7 kg
03/09/25 04:08
03/09/25 04:08
PT 18.2 Sec (11.4-14.6) H 03/06/25 13:07
INR 1.49 03/06/25 13:07
APTT 27.4 Sec (23.4-35.0) 03/06/25 13:07
Magnesium 2.5 mg/dl (1.6-2.3) H 03/09/25 04:08
Physical Exam
Constitutional: No acute distress
Cardiovascular: Rhythm & rate is regular
Respiratory: Wheeze Absent and Rhonchi Absent
GI: Soft and Non tender
Neuro/Psych: Alert
Data Reviewed
-
Date of Service: March 09, 2025
Medical Decision Making: Reviewed Test Results
Echo: Ordered by me
X-Ray/CT/US/MRI/NUC/PET: Report Reviewed by me
Medical Tests (PFT, Pathology etc): Report Reviewed by me
Labs: Labs Reviewed by me
--- NOTE | 2025-03-09 12:00 | PTCARENOTE ---
Pt reassessed. SR on tele with rates in the 90s. BP 109/47. POX 95% on RA. Surgical sites stable. Pt denies pain. Encouraged IS, states 'I just did that'. Encouraged ambulation, refusing at this time. Educated patient on importance in participating
in care.
--- NOTE | 2025-03-09 13:58 | CM ---
Chart reviewed. Patient OOB sitting in the chair, sister at bedside. Patient is independent of ADLS, lives alone in a 1 STH, 5 ZHANG, 0 DME. Patient is going to his [facility] [address] [id number] . Patient has a
landline, so CT Transitional Care RN will need to call his sister Caty's cell. Plan is for the patient to go to his [facility] with CT Transitional RN. CM to follow
[2025-03-09] MEDS: FERRLECIT 110 MG IV (14:01)
[2025-03-09 14:05] LABS: Glucose - Point of Care 239 mg/dl (70-99)
--- NOTE | 2025-03-09 15:30 | PTCARENOTE ---
Pt reassessed. ST 101. BP 128/63. Sitting up in the chair. Poor appetite remains. Occasionally completes IS independently. Surgical sites stable. Ambulates with RW in polo with RN. Denies pain and nausea at this time.
--- NOTE | 2025-03-09 16:30 | PTCARENOTE ---
Right IJ Cordis d/c per orders. Hemostasis achieved. Dressing applied. Pt resting in bed comfortably. Denies pain.
[2025-03-09] MEDS: NOVOLOG FLEXPEN 10 UNITS SC (17:47)
[2025-03-09] MEDS: NOVOLOG FLEXPEN-LOW RESISTANCE SC (17:47)
[2025-03-09 17:50] LABS: Glucose - Point of Care 119 mg/dl (70-99)
[2025-03-09] MEDS: ROXICODONE 10 MG PO (19:41)
[2025-03-09] MEDS: REMOVE LIDOCAINE PATCH 1 PATCH REMOVE (19:42)
[2025-03-09] MEDS: LOPRESSOR 100 MG PO (19:42)
--- NOTE | 2025-03-09 20:00 | PTCARENOTE ---
Received patient at 1900. AOx4, pain well controlled, OOB to chair. ST on CM, rates low 100's, rub persists, pulses palpable, baseline +2 edema in lower extremities. RA, lung dim at the bases. Abd NT, obese, distended, hypoactive BS, no nausea,
passing flatus/belching. Voiding without difficulty in the urinal taylor urine. All surgical sites stable and intact, POA venous ulcerations with dressing intact. PIV x1 INT. See nursing work list for additional intervention details.
[2025-03-09] MEDS: TOPROL XL PO (20:56)
[2025-03-09] MEDS: LIPITOR 40 MG PO (21:09)
[2025-03-09] MEDS: PACERONE 400 MG PO (21:10)
[2025-03-09 21:16] LABS: Glucose - Point of Care 118 mg/dl (70-99)
[2025-03-09] MEDS: XANAX 0.25 MG PO (22:50)
[2025-03-10] VITALS (16 sets, daily range): BP systolic 84–139; BP diastolic 50–68; PULSE 91; O2SAT 95; BMI 35.1
--- NOTE | 2025-03-10 | PTCARENOTE ---
Patient hypotensive, asymptomatic, OOB to chair. CVPA aware, care plan ongoing.
--- NOTE | 2025-03-10 04:00 | PTCARENOTE ---
No changes, labs drawn and sent, patient sleeping between care.
--- NOTE | 2025-03-10 04:03 | W.PN.CT ---
Addendum entered and electronically signed by Evangelist Marquez MD 03/10/25 08:57:
I saw and examined the patient.
The PA's note was reviewed and I agree with the note.
Comment:
Armand BOLIVAR [phone]
POD#4 s/p CABG x 5, ELAA
No major overnight events. Repeat echo yesterday LVEF 55-60 w/ no RWMA. Pt. doesn't feel ready for D/C today.
Toprol increased to 100mg BID yesterday w/ improved HR control.
Check 2v CXR
D/C planning for home tomorrow
Original Note:
Today's Communication / Plan
-
Plan:
-No major issues overnight. Hemodynamically and neurologically intact
-Off all drips
-Postop EKG with global ST-elevation, c/w acute pericarditis, on Colchicine. Repeat echo yesterday 03/09 was unremarkable, LVEF 55-60, no WMA
-BB increased d/t postop tachycardia, switched Lopressor to home Toprol XL. May have to adjust BP meds with increased BB
-Cont. current meds (ASA, Plavix, Lipitor, Toprol XL 100 mg BID, Norvasc 5 qd, Lisinopril 10 bid, Amio, Protonix, Farxiga)
-Mag oxid on hold, mg 3.0
-Diabetes education/management following
-F/U 2-view cxr
-Check wt and cont. diuresis as warranted
-OOB into chair/Ambulate
-Home today
Assessment / Plan
-
- Mv-CAD- s/p CABG x 5 (In situ ABARCA to diagonal sequential to to LAD, Ao to RSVG to ramus, Ao to RSVG to RPDA sequential to LPL); LAAE [35 mm device] by Dr. French on 03/06/25, pod #3
- Intraop JOSIE: LVEF 60% pre and postop with no significant regional wma. His aortic valve was interrogated on transesophageal echocardiogram and found to have no significant insufficiency and no stenosis. His left atrial appendage was verified to
be free of any thrombus or debris preoperatively and found to be totally occlusive postoperatively.
- Unstable angina, multivessel coronary disease involving the proximal LAD
- DM II (A1c 8.6)
- Hypertension
- Class 2 obesity with a BMI of 35
- Hyperlipidemia
- Nephrolithiasis
- R renal CA, s/p nephrectomy
- Chronic venous stasis changes and lymphedema bilateral lower extremities
- Acute on chronic postop blood loss anemia- 1 pRBC on 03/07
- Acute postop atelectasis
- Acute postop hypovolemia with subsequent hypervolemia
- Acute postop suspected pericarditis on ECG/ + rub
- Acute postop abdominal distention-
- Acute post op pulmonary insufficiency
- Acute postop anxiety
- Acute postop tachycardia
Discussed patient care with: Cardiology, Nursing, Respiratory Therapy, Pharmacy and Care Team
Subjective
-
Date of Service: March 10, 2025
Pt c/o mild incisional pain, otherwise feels well. Ambulating halls without difficulty
Objective Data
-
PT 18.2 Sec (11.4-14.6) H 03/06/25 13:07
INR 1.49 03/06/25 13:07
APTT 27.4 Sec (23.4-35.0) 03/06/25 13:07
Vital Signs
Vital Signs
Temp Pulse Resp BP Pulse Ox
98.5 F 85 19 95/57 96
03/10/25 00:40 03/10/25 03:00 03/10/25 00:40 03/10/25 00:43 03/10/25 03:00
CT Intake/Output/Weight
03/09/25 03/09/25 03/10/25
06:59 18:59 06:59
Intake Total 510 / 886.4 1050 / 1290 240 / 1290
Output Total 1025 / 2160 950 / 1650 700 / 1650
Balance -515 / -1273.6 100 / -360 -460 / -360
SaO2: 96 (RA)
Physical Exam
-
General: Awake, Oriented and AOx3
Cardiovascular: Regular rate & rhythm, No Murmurs, No Rub and No Gallop
Respiratory: Decreased Breath Sounds (at bases, otherwise clear)
Sternum: Stable
Incision: Clean, Dry, Intact and Dressing Intact
Extremities: Other (+trace edema)
Data Reviewed
-
Lab Results: Results Reviewed
Medications: Active Meds Reviewed
Chest X-Ray: Report Reviewed and Image Reviewed
ECG: Report Reviewed and Image Reviewed
[2025-03-10 04:46] LABS: Hematocrit 33.0 % (39.0-52.0); Hemoglobin 10.8 g/dL (13.0-18.0); Mean Corp Hgb Conc. 32.7 g/dL (33.0-37.0); Mean Corpuscular Volume 91.2 fL (80.0-94.0); Platelet Count 249 10^3/uL (130-400); Red Cell Dist. Width 17.2 % (11.5-14.5)
[2025-03-10] MEDS: TYLENOL 1000 MG PO ×3 (05:04→21:09)
[2025-03-10] MEDS: CALCIUM GLUCONATE 100 IV (05:04)
[2025-03-10 05:16] LABS: Blood Urea Nitrogen 48 mg/dl (9-20); Calcium 8.2 mg/dl (8.4-10.2); Carbon Dioxide 28 mmol/L (22-30); Chloride 103 mmol/L (98-107); Estimated Creatinine Clearance 86 ml/min; Glucose 135 mg/dl (70-99); Magnesium 3.0 mg/dl (1.6-2.3); Potassium 4.5 mmol/L (3.5-5.1); Sodium 136 mmol/L (135-145); eGFR > 60.00
[2025-03-10 08:11] LABS: Glucose - Point of Care 214 mg/dl (70-99)
[2025-03-10 09:04] LABS: Glucose - Point of Care 146 mg/dl (70-99)
[2025-03-10] MEDS: MILK OF MAGNESIA 30 ML PO (09:17)
[2025-03-10] MEDS: LANTUS 0.44 UNITS SC (09:17)
[2025-03-10] MEDS: NOVOLOG FLEXPEN-LOW RESISTANCE SC (09:17)
[2025-03-10] MEDS: NOVOLOG FLEXPEN 10 UNITS SC ×3 (09:17→18:02)
[2025-03-10] MEDS: VITAMIN C 500 MG PO (09:18)
[2025-03-10] MEDS: LOW STRENGTH ASPIRIN 81 MG PO (09:18)
[2025-03-10] MEDS: REGLAN 10 MG PO ×3 (09:18→15:52)
[2025-03-10] MEDS: FEOSOL 325 MG PO (09:18)
[2025-03-10] MEDS: PROTONIX 40 MG PO (09:18)
[2025-03-10] MEDS: PLAVIX 75 MG PO (09:18)
[2025-03-10] MEDS: COLCHICINE 0.3 MG PO (09:18)
[2025-03-10] MEDS: SENOKOT-S 1 TABLET PO (09:18)
[2025-03-10] MEDS: TOPROL XL 100 MG PO ×2 (09:18→20:14)
[2025-03-10] MEDS: NORVASC 5 MG PO (09:19)
[2025-03-10] MEDS: ZESTRIL 10 MG PO (09:19)
[2025-03-10] MEDS: PACERONE 200 MG PO ×3 (09:19→21:10)
[2025-03-10] MEDS: BACTROBAN 2% OINTMENT 1 APPLIC NASAL (09:20)
[2025-03-10] MEDS: LIDOCAINE 4% PATCH TOPICAL (09:20)
[2025-03-10] MEDS: FARXIGA 10 MG PO (09:20)
--- NOTE | 2025-03-10 10:11 | PTCARENOTE ---
Patient received from full service vending driver RN; AAOx3, responds spontaneously to RN and follows commands; Flat affect; SR with ST on monitor; +2 B/L LE edema; +2 DP and radial pulses; Shallow respirations; SpO2 92-95% on RA; IS 1500 ml; Lungs diminished at
bases; Poor appetite, patient complains of constipation - PRN Milk of Magnesia given accordingly; Patient urinating clear, taylor urine; Assist x1 with RW; Surgical sites intact; PIVx1 - #20 right wrist; 2 view CXR completed; See nursing
documentation for further information
[2025-03-10] MEDS: NSS IV (11:29)
--- NOTE | 2025-03-10 11:34 | W.PN.CD ---
Today's Communication / Plan
-
Hemodynamically stable. Remains in sinus rhythm.
Continue postop treatment
Impression / Plan
-
69-year-old male with history of diabetes is noted to have multivessel coronary artery disease and underwent coronary artery bypass grafting and ALFREDO clip
.
Coronary artery disease -status post coronary artery bypass grafting x 5 and ALFREDO clip by Dr. French 03/06/2025
- Postop care per CT surgery
- Remains in sinus continue to monitor on telemetry
- ECG with diffuse ST elevation suggestive of pericarditis noted on 03/09/2025. Echocardiogram with normal left ventricular function.
.
Diabetes management per protocol.
Anemia. History of anemia. Stable. Monitor postop anemia.
.
History of resection of right kidney tumor
.
Physical Exam
Vital Signs/Labs
Vital Signs
Temp Pulse Resp BP Pulse Ox
98.3 F 84 16 139/65 93
03/10/25 08:22 03/10/25 11:00 03/10/25 08:22 03/10/25 10:25 03/10/25 11:12
03/09/25 03/10/25 03/11/25
06:59 06:59 06:59
Actual Weight 117.7 kg 117.3 kg
03/10/25 04:30
03/10/25 04:30
PT 18.2 Sec (11.4-14.6) H 03/06/25 13:07
INR 1.49 03/06/25 13:07
APTT 27.4 Sec (23.4-35.0) 03/06/25 13:07
Magnesium 3.0 mg/dl (1.6-2.3) H 03/10/25 04:30
Physical Exam
Constitutional: No acute distress
Cardiovascular: Rhythm & rate is regular
Respiratory: Respiratory effort normal
GI: Normal bowel sounds
Neuro/Psych: Alert
Data Reviewed
-
Date of Service: March 10, 2025
Medical Decision Making: Reviewed Test Results
Echo: Report Reviewed by me
X-Ray/CT/US/MRI/NUC/PET: Report Reviewed by me
Medical Tests (PFT, Pathology etc): Report Reviewed by me
Labs: Labs Reviewed by me
[2025-03-10 12:32] LABS: Glucose - Point of Care 273 mg/dl (70-99)
[2025-03-10] MEDS: NOVOLOG FLEXPEN-LOW RESISTANCE 3 UNITS SC (12:35)
--- NOTE | 2025-03-10 13:00 | PTCARENOTE ---
Patient with 5 minute episode of afib in AM - asymptomatic and denies SOB, dizziness, lightheadedness, or chest pain; Wound care provided by RN; Patient ambulating in hallways with cardiac rehab and RN
[2025-03-10] MEDS: ROXICODONE 10 MG PO (16:27)
--- NOTE | 2025-03-10 17:53 | PTCARENOTE ---
PRN Oxycodone given accordingly for pain; Patient had BM this afternoon; Patient resting comfortably in chair
[2025-03-10 18:01] LABS: Glucose - Point of Care 218 mg/dl (70-99)
[2025-03-10] MEDS: NOVOLOG FLEXPEN-LOW RESISTANCE 2 UNITS SC (18:01)
[2025-03-10] MEDS: REMOVE LIDOCAINE PATCH REMOVE (20:05)
--- NOTE | 2025-03-10 20:15 | PTCARENOTE ---
Patient received from RN @ 1900. Patient sitting comfortably w/ call newton in reach. AOx3 w/ flat affect. NSR BP 126/64 HR 86. Heart sounds audible. Radial and pedal pulses present. +2 edema noted on bilateral legs. POX 96% RA. IS 1500.
Lungs diminished in bases bilaterally. Bowel sounds normoactive. Voiding clear taylor urine. Sternal incision well approximated MARKETING AGENT. CT punctures open not approximated SHANNA. Left groin puncture well approximated MARKETING AGENT. Right groin incision well
approximated SHANNA. Right and left knee incision well approximated MARKETING AGENT. lower legs bilaterally wrapped w/ jesse wrap. Jesse wrap C/D/I. Right wrist PIV patent and intact. See worklist for more details.
[2025-03-10] MEDS: SENOKOT-S PO (20:25)
[2025-03-10] MEDS: CALCIUM GLUCONATE 130 MG IV (21:09)
[2025-03-10] MEDS: LIPITOR 40 MG PO (21:24)
[2025-03-10 22:42] LABS: Glucose - Point of Care 113 mg/dl (70-99)
[2025-03-11 00:01] VITALS: BP 125/61
--- NOTE | 2025-03-11 00:02 | PTCARENOTE ---
Patient reassessed. NSR BP 125/61 HR 82 POX 97% RA.
[2025-03-11] MEDS: ROXICODONE 10 MG PO (03:49)
--- NOTE | 2025-03-11 03:54 | W.PN.CT ---
Addendum entered and electronically signed by Evangelist Marquez MD 03/11/25 08:41:
I saw and examined the patient.
The PA's note was reviewed and I agree with the note.
Comment:
No issues overnight.
- Decrease Toprol to 75mg BID
- D/C home today
Original Note:
Today's Communication / Plan
-
Plan:
-No major issues overnight. Hemodynamically and neurologically intact
-Off all drips
-Postop EKG with global ST-elevation, c/w acute pericarditis, on Colchicine. Repeat echo on 03/09 was unremarkable, LVEF 55-60, no WMA
-BB increased d/t postop tachycardia, adjusting BP meds with increased BB. Lisinopril currently placed on hold
-Cont. current meds (ASA, Plavix, Lipitor, Toprol XL 100 mg BID, Norvasc 5 qd, Amio, Protonix, Farxiga)
-Mag oxide on hold, mg 2.8
-Diabetes education/management following
-Check wt and cont. diuresis as warranted
-OOB into chair/Ambulate
-Home today
Assessment / Plan
-
- Mv-CAD- s/p CABG x 5 (In situ ABARCA to diagonal sequential to to LAD, Ao to RSVG to ramus, Ao to RSVG to RPDA sequential to LPL); LAAE [35 mm device] by Dr. French on 03/06/25, pod #5
- Intraop JOSIE: LVEF 60% pre and postop with no significant regional wma. His aortic valve was interrogated on transesophageal echocardiogram and found to have no significant insufficiency and no stenosis. His left atrial appendage was verified to
be free of any thrombus or debris preoperatively and found to be totally occlusive postoperatively.
- Unstable angina, multivessel coronary disease involving the proximal LAD
- DM II (A1c 8.6)
- Hypertension
- Class 2 obesity with a BMI of 35
- Hyperlipidemia
- Nephrolithiasis
- R renal CA, s/p nephrectomy
- Chronic venous stasis changes and lymphedema bilateral lower extremities
- Acute on chronic postop blood loss anemia- 1 pRBC on 03/07
- Acute postop atelectasis
- Acute postop hypovolemia with subsequent hypervolemia
- Acute postop suspected pericarditis on ECG/ + rub
- Acute postop abdominal distention-
- Acute post op pulmonary insufficiency
- Acute postop anxiety
- Acute postop tachycardia
Discussed patient care with: Cardiology, Nursing, Respiratory Therapy, Pharmacy and Care Team
Subjective
-
Date of Service: March 11, 2025
Pt offers no complaints, feels well, ambulating halls without difficulty
Objective Data
-
Lab Results
03/10/25 04:30
PT 18.2 Sec (11.4-14.6) H 03/06/25 13:07
INR 1.49 03/06/25 13:07
APTT 27.4 Sec (23.4-35.0) 03/06/25 13:07
Vital Signs
Vital Signs
Temp Pulse Resp BP Pulse Ox
97.8 F 81 16 125/61 97
03/11/25 00:02 03/11/25 00:01 03/11/25 00:02 03/11/25 00:01 03/11/25 00:02
CT Intake/Output/Weight
03/10/25 03/10/25 03/11/25
06:59 18:59 06:59
Intake Total 820 / 1870
Output Total 700 / 1650 1000 / 1000
Balance 120 / 220 -1000 / -1000
SaO2: 97 (RA)
Physical Exam
-
General: Awake, Oriented and AOx3
Cardiovascular: Regular rate & rhythm, No Murmurs, No Rub and No Gallop
Respiratory: Decreased Breath Sounds (at bases, otherwise clear)
Sternum: Stable
Incision: Clean, Dry, Intact and Dressing Intact
Extremities: Other (+trace edema)
Data Reviewed
-
Lab Results: Results Reviewed
Medications: Active Meds Reviewed
Chest X-Ray: Report Reviewed and Image Reviewed
ECG: Report Reviewed and Image Reviewed
[2025-03-11 04:03] VITALS: BP 111/56
--- NOTE | 2025-03-11 04:07 | PTCARENOTE ---
Patient reassessed. Labs drawn. NSR BP 111/56 HR 81 POX 98% RA.
[2025-03-11 04:38] LABS: Blood Urea Nitrogen 43 mg/dl (9-20); Calcium 8.6 mg/dl (8.4-10.2); Carbon Dioxide 25 mmol/L (22-30); Chloride 103 mmol/L (98-107); Estimated Creatinine Clearance 79 ml/min; Glucose 143 mg/dl (70-99); Magnesium 2.8 mg/dl (1.6-2.3); Potassium 4.4 mmol/L (3.5-5.1); Sodium 134 mmol/L (135-145); eGFR > 60.00
[2025-03-11 06:00] VITALS: BMI 35.0
[2025-03-11] MEDS: TYLENOL 1000 MG PO (06:27)
[2025-03-11 07:45] LABS: Glucose - Point of Care 210 mg/dl (70-99)
[2025-03-11 07:47] VITALS: BP 97/57
[2025-03-11] MEDS: COLCHICINE 0.3 MG PO (08:05)
[2025-03-11] MEDS: PROTONIX 40 MG PO (08:05)
[2025-03-11] MEDS: LOW STRENGTH ASPIRIN 81 MG PO (08:05)
[2025-03-11] MEDS: FARXIGA 10 MG PO (08:05)
[2025-03-11] MEDS: NORVASC 5 MG PO (08:05)
[2025-03-11] MEDS: PACERONE 200 MG PO (08:05)
[2025-03-11] MEDS: FEOSOL 325 MG PO (08:05)
[2025-03-11] MEDS: TOPROL XL 100 MG PO (08:05)
[2025-03-11] MEDS: REGLAN 10 MG PO (08:05)
[2025-03-11] MEDS: VITAMIN C 500 MG PO (08:05)
[2025-03-11] MEDS: PLAVIX 75 MG PO (08:05)
[2025-03-11] MEDS: LANTUS 0.44 UNITS SC (08:06)
[2025-03-11] MEDS: SENOKOT-S PO (08:06)
[2025-03-11] MEDS: NOVOLOG FLEXPEN 10 UNITS SC ×2 (08:06→13:04)
[2025-03-11] MEDS: LIDOCAINE 4% PATCH TOPICAL (08:06)
[2025-03-11] MEDS: NOVOLOG FLEXPEN-LOW RESISTANCE 2 UNITS SC (08:07)
--- NOTE | 2025-03-11 09:20 | PTCARENOTE ---
Patient received from shift manager RN; AAOx3, responds spontaneously to RN and follows commands; Flat affect; NSR on monitor; +2 B/L LE edema; +2 DP and radial pulses; Dyspnea on exertion; SpO2 92-95% on RA; IS 1500 ml; Lungs diminished at bases;
Patient had BM this AM; Patient urinating in bathroom; Assist x1 with RW; Surgical sites intact; PIVx1 - #20 right wrist; See nursing documentation for further information
[2025-03-11] MEDS: NSS IV (10:29)
[2025-03-11 11:56] VITALS: BP 108/53
[2025-03-11 11:58] LABS: Glucose - Point of Care 270 mg/dl (70-99)
[2025-03-11] MEDS: NOVOLOG FLEXPEN-LOW RESISTANCE 3 UNITS SC (13:04)
[2025-03-11] MEDS: REGLAN PO (13:12)
--- NOTE | 2025-03-11 15:18 | PTCARENOTE ---
Patient showered with CHG; Patient states full understanding of discharge instructions and has no further questions at this time; Patient belongings taken with patient; PIV x1 and telemetry pack removed; Patient taken by RN via wheelchair to
sister's vehicle
== END 2025-03-11 15:21 | disposition home or self-care (01) | DRG 235 ==
LOC: CVICU 04:56
PROVIDERS: Anesthesiology; Nurse Practitioner; Physician Assistant Medical; ADMITTING PHYSICIAN Thoracic Surgery (Cardiothoracic Vascular Surgery); CONSULT PHYSICIAN Internal Medicine; FAMILY PHYSICIAN Family Medicine
PROC: 02110Z9 Bypass Coronary Artery, Two Arteries from Left Internal Mammary, Open Approach (ICD-10-PCS; 2025-03-06)
PROC: 06BP0ZZ Excision of Right Saphenous Vein, Open Approach (ICD-10-PCS; 2025-03-06)
PROC: B24BZZ4 Ultrasonography of Heart with Aorta, Transesophageal (ICD-10-PCS; 2025-03-06)
PROC: 5A1221Z Performance of Cardiac Output, Continuous (ICD-10-PCS; 2025-03-06)
PROC: 06BQ4ZZ Excision of Left Saphenous Vein, Percutaneous Endoscopic Approach (ICD-10-PCS; 2025-03-06)
PROC: 021209W Bypass Coronary Artery, Three Arteries from Aorta with Autologous Venous Tissue, Open Approach (ICD-10-PCS; 2025-03-06)
PROC: 02L70CK Occlusion of Left Atrial Appendage with Extraluminal Device, Open Approach (ICD-10-PCS; 2025-03-06)
PROC: 30233N1 Transfusion of Nonautologous Red Blood Cells into Peripheral Vein, Percutaneous Approach (ICD-10-PCS; 2025-03-07)
DX: I25.110 Atherosclerotic heart disease of native coronary artery with unstable angina pectoris (principal); J95.1 Acute pulmonary insufficiency following thoracic surgery; D62 Acute posthemorrhagic anemia; J98.11 Atelectasis; I30.8 Other forms of acute pericarditis; E11.40 Type 2 diabetes mellitus with diabetic neuropathy, unspecified; I10 Essential (primary) hypertension; E78.5 Hyperlipidemia, unspecified; I89.0 Lymphedema, not elsewhere classified; I87.2 Venous insufficiency (chronic) (peripheral); E86.1 Hypovolemia; E87.70 Fluid overload, unspecified; E66.812 Obesity, class 2; N20.0 Calculus of kidney; R00.0 Tachycardia, unspecified; F41.9 Anxiety disorder, unspecified; R14.0 Abdominal distension (gaseous); Y83.2 Surgical operation with anastomosis, bypass or graft as the cause of abnormal reaction of the patient, or of later complication, without mention of misadventure at the time of the procedure; Z68.35 Body mass index [BMI] 35.0-35.9, adult; Z77.090 Contact with and (suspected) exposure to asbestos; Z79.84 Long term (current) use of oral hypoglycemic drugs; Z79.899 Other long term (current) drug therapy; Z82.49 Family history of ischemic heart disease and other diseases of the circulatory system; Z87.891 Personal history of nicotine dependence
CPT/HCPCS: 36415; 71045; 71046; 80048; 80053; 81003; 81015; 82248; 82330; 82565; 82805; 82810; 82947; 82962; 83036; 83735; 84132; 84302; 84520; 85014; 85018; 85025; 85027; 85049; 85610; 85730; 86850; 86900; 86901; 86920; 87070; 87147; 93005; 93308; 93312; 93320; 93321; 93325; 93880; 93923; 93931; 93970; 94002; J2916; P9016; P9045; Q9957